=== PATIENT | female | born 1950 | race Caucasian/White ===

== ENCOUNTER → 2016-05-06 | Day surgery (SDC) | payer MEDICAID ==
[~2016-05-06] MED LIST: Lactated Ringers 1,000 ML IV SCH; Propofol 200 MG/20 ML SDV IV ONE
[2016-05-06 12:59] VITALS: BP 126/66
--- NOTE | 2016-05-09 07:54 | OR ---
DATE OF OPERATION: 05/06/2016 PREOPERATIVE DIAGNOSIS: 1. GASTROESOPHAGEAL REFLUX DISEASE. 2. ALTERED BOWEL HABITS. POSTOPERATIVE DIAGNOSIS: 1. GASTROESOPHAGEAL REFLUX DISEASE. 2. ALTERED BOWEL HABITS. SURGEON: Lamont Mackey MD PROCEDURE: 1. EGD WITH BIOPSIES X3, CODY. 2. FULL-LENGTH COLONOSCOPY. 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 COMPLICATIONS: None. SPECIMEN: 1. Antral biopsy x2. 2. CODY. 3. Distal esophageal biopsy x1. FINDINGS: 1. Full-length EGD. 2. Status post apparent hiatal hernia repair, intact. 3. 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 4. Minimal antral gastritis. 5. Full-length colonoscopy. 6. Extremely poor bowel prep. 7. Sigmoid diverticulosis. RECOMMENDATIONS: Medical followup with Dr. Ma. INDICATIONS: The patient was in for a physical. Apparently, she has been having some ongoing issues with altered bowel habits and chronic reflux. Dr. Ma recommended upper and lower endoscopy. DESCRIPTION OF PROCEDURE: The patient was prepped and draped, placed in the left lateral decubitus position. A lubricated Olympus gastroscope was then inserted into the cricopharyngeus area, and easily intubated the esophagus. The esophageal lining was benign in its entire course until its most distal aspect. The patient looks like she is status post a hiatal hernia repair, which is intact. She has a few very minor, possible short segment Branch's changes, and biopsies were taken of that. No acute inflammatory changes. No stricturing or ulcerations seen. No active reflux was seen with the scope in place. The scope was easily intubated into the stomach, through the pylorus, and into the duodenum. The duodenal bulb and the second portion of duodenum were completely benign. The scope was brought back into the stomach and retroflexed. The upper fundus and cardia were completely unremarkable. Hiatal hernia wrap looks in place. Upon straightening, the rest of the gastric lining was evaluated thoroughly. There may be some very mild antral changes of gastritis and two biopsies were taken along with a CODY test. Air was then suctioned from the stomach, and the scope was removed without complication. A lubricated Olympus colonoscope was then inserted and with relative ease, advanced to the cecum. Unfortunately, the patient's bowel prep was quite poor with liquid stool throughout most of the colon. A lot of this had particulate matter, and the scope repeatedly got plugged. There were many areas we were not able to visualize thoroughly. We were able to see the appendiceal orifice and visualize and palpate the right lower quadrant. Upon withdrawal, throughout the entire length of the colon, I could find no obvious polyps, masses, ulcerations, or bleeding sites. There were no definite vascular abnormalities or signs of colitis. The patient did have a few scattered diverticula in the sigmoid area but very minimal. No inflammatory changes. The rectal vault was benign. Retroflexion showed no anal lesions but visualization was very difficult due to the amount of stool present. Air was suctioned as best as possible. The scope was removed without complications. MARCELLA/FRANCESCO /[id number]
== END ==
LOC: CC.SDS 10:38
PROVIDERS: ATTEND Family Medicine
DX: K57.30 Diverticulosis of large intestine without perforation or abscess without bleeding (principal); K21.9 Gastro-esophageal reflux disease without esophagitis; M19.90 Unspecified osteoarthritis, unspecified site; F32.9 Major depressive disorder, single episode, unspecified; I10 Essential (primary) hypertension; E55.9 Vitamin D deficiency, unspecified; M81.0 Age-related osteoporosis without current pathological fracture; E78.5 Hyperlipidemia, unspecified; E04.1 Nontoxic single thyroid nodule; M81.8 Other osteoporosis without current pathological fracture; Z88.0 Allergy status to penicillin; Z88.5 Allergy status to narcotic agent; Z88.8 Allergy status to other drugs, medicaments and biological substances; Z79.899 Other long term (current) drug therapy; Z90.49 Acquired absence of other specified parts of digestive tract; Z98.890 Other specified postprocedural states
CPT/HCPCS: 43239; 45378; 87081; J2704; J7120

== ENCOUNTER 2017-12-04 16:40 | Inpatient (IN) | payer MEDICAID, MEDICARE ==
[2017-12-04 17:08] LABS: CHLORIDE,CL 102 mEq/L (98-106); SODIUM,NA 141 mEq/L (136-145)
[2017-12-04] MEDS ORDERED: Acetaminophen 325 MG Tab PO PRN (17:32)
[2017-12-04] MEDS ORDERED: Ondansetron 4 MG/2 ML SDV IV PRN (17:32)
[2017-12-04] MEDS ORDERED: Ondansetron 4 MG Tab.DIS PO PRN (17:32)
[2017-12-04] MEDS: Sodium Chloride 0.9% 1,000 ML IV SCH (18:30)
[2017-12-04] MEDS: Levofloxacin/Dextrose 5%-Water 500 MG in Premix Bag 1 BAG IV SCH (18:30)
[2017-12-04] MEDS: Enoxaparin 40 MG/0.4 ML Syringe SUBCUT SCH (19:03)
[2017-12-05] MEDS: Sodium Chloride 0.9% 1,000 ML IV SCH ×2 (04:22→14:06)
[2017-12-05 07:53] LABS: CHLORIDE,CL 108 mEq/L (98-106); SODIUM,NA 144 mEq/L (136-145)
--- NOTE | 2017-12-05 12:32 | PCM.PN ---
- General Info Date of Service: 12/05/17 Admission Dx/Problem (Free Text): Acute UTI with fever Functional Status: Reports: Pain Controlled, Tolerating Diet, Ambulating - Review of Systems General: Reports: Fever, Weakness, Fatigue HEENT: Reports: No Symptoms Pulmonary: Denies: Shortness of Breath, Cough Cardiovascular: Denies: Chest Pain, Edema, Lightheadedness Gastrointestinal: Reports: Abdominal Pain (with voiding), Nausea. Denies: Vomiting Genitourinary: Reports: Burning Musculoskeletal: Reports: No Symptoms Skin: Reports: No Symptoms Neurological: Reports: No Symptoms - Patient Data Vitals - Most Recent: Last Vital Signs Temp 98.6 F 12/05/17 08:00 Pulse 75 12/05/17 08:00 Resp 18 12/05/17 08:00 BP 110/61 12/05/17 08:00 Pulse Ox 96 12/05/17 08:00 Weight - Most Recent: 153 lb I&O - Last 24 Hours: Intake & Output 12/04/17 12/05/17 12/05/17 22:59 06:59 14:59 Intake Total 1487 Output Total 300 100 Balance 1187 -100 Lab Results Last 24 Hours: Laboratory Results - last 24 hr 12/04/17 12/04/17 12/04/17 Range/Units 16:52 16:52 16:52 WBC 9.6 (5.0-10.0) 10^3/uL RBC 4.52 (4.00-5.50) 10^6/uL Hgb 14.8 (12.0-16.0) g/dL Hct 43.6 (37.0-47.0) % MCV 96.5 H (82.0-94.0) fL MCH 32.7 H (27.0-32.0) pg MCHC 33.9 (33.0-38.0) g/dL RDW Coeff of Eric 11.8 (11.0-15.0) % Plt Count 193 (150-400) 10^3/uL Neut % (Auto) 85.1 H (35-85) % Lymph % (Auto) 9.2 L (10-55) % [place] % (Auto) 5.1 (0-16) % Eos % (Auto) 0.4 (0-5) % Baso % (Auto) 0.2 (0-3) % Neut # (Auto) 8.20 H (1.80-7.00) 10^3/uL Lymph # (Auto) 0.89 L (1.00-4.80) 10^3/uL [place] # (Auto) 0.49 (0.00-0.80) 10^3/uL Eos # (Auto) 0.04 (0.00-0.45) 10^3/uL Baso # (Auto) 0.02 10^3/uL Sodium 141 (136-145) mEq/L Potassium 3.8 (3.5-5.0) mEq/L Chloride 102 (98-106) mEq/L Carbon Dioxide 27 (21-32) mmol/L BUN 5 L D (7-18) mg/dL Creatinine 0.8 (0.6-1.0) mg/dL Est Cr Clr Drug Dosing TNP Estimated GFR (MDRD) > 60 (>=60) mL/min Glucose 148 H D (75-99) mg/dL Calcium 8.9 (8.4-10.1) mg/dL Total Bilirubin 1.0 (0.0-1.0) mg/dL AST 16 (15-37) U/L ALT 18 (12-78) U/L Alkaline Phosphatase 83 (46-116) U/L C-Reactive Protein 4.1 H (0.2-0.8) mg/dL Total Protein 7.7 (6.4-8.2) g/dL Albumin 3.7 (3.4-5.0) g/dL Urine Color Yellow (YELLOW) Urine Appearance Cloudy (CLEAR) Urine pH 6.5 (4.5-8.0) Ur Specific [place] 1.015 (1.003-1.020) Urine Protein Negative (NEGATIVE) mg/dL Urine Glucose (UA) Negative (NEGATIVE) mg/dL Urine Ketones Negative (NEGATIVE) mg/dL Urine Occult Blood Moderate H (NEGATIVE) Urine Nitrite Positive H (NEGATIVE) Urine Bilirubin Negative (NEGATIVE) Urine Urobilinogen 0.2 (0.2-1.0) EU/dL Ur Leukocyte Esterase Moderate H (NEGATIVE) Urine RBC 0-5 (0-5) /HPF Urine WBC 50-75 H (0-5) /HPF Urine WBC Clumps Few H (NOT SEEN) /HPF Ur Epithelial Cells Few H (NOT SEEN) /HPF Urine Bacteria Many H (NOT SEEN) /HPF 12/05/17 12/05/17 Range/Units 07:00 07:00 WBC 7.4 (5.0-10.0) 10^3/uL RBC 3.83 L (4.00-5.50) 10^6/uL Hgb 12.6 (12.0-16.0) g/dL Hct 37.8 (37.0-47.0) % MCV 98.7 H (82.0-94.0) fL MCH 32.9 H (27.0-32.0) pg MCHC 33.3 (33.0-38.0) g/dL RDW Coeff of Eric 11.9 (11.0-15.0) % Plt Count 173 (150-400) 10^3/uL Neut % (Auto) 61.5 (35-85) % Lymph % (Auto) 25.4 (10-55) % [place] % (Auto) 11.2 (0-16) % Eos % (Auto) 1.6 (0-5) % Baso % (Auto) 0.3 (0-3) % Neut # (Auto) 4.56 (1.80-7.00) 10^3/uL Lymph # (Auto) 1.88 (1.00-4.80) 10^3/uL [place] # (Auto) 0.83 H (0.00-0.80) 10^3/uL Eos # (Auto) 0.12 (0.00-0.45) 10^3/uL Baso # (Auto) 0.02 10^3/uL Sodium 144 (136-145) mEq/L Potassium 3.2 L (3.5-5.0) mEq/L Chloride 108 H (98-106) mEq/L Carbon Dioxide 25 (21-32) mmol/L BUN 8 D (7-18) mg/dL Creatinine 0.7 (0.6-1.0) mg/dL Est Cr Clr Drug Dosing 66.28 Estimated GFR (MDRD) > 60 (>=60) mL/min Glucose 102 H D (75-99) mg/dL Calcium 8.1 L (8.4-10.1) mg/dL Total Bilirubin (0.0-1.0) mg/dL AST (15-37) U/L ALT (12-78) U/L Alkaline Phosphatase (46-116) U/L C-Reactive Protein 6.9 H (0.2-0.8) mg/dL Total Protein (6.4-8.2) g/dL Albumin (3.4-5.0) g/dL Urine Color (YELLOW) Urine Appearance (CLEAR) Urine pH (4.5-8.0) Ur Specific [place] (1.003-1.020) Urine Protein (NEGATIVE) mg/dL Urine Glucose (UA) (NEGATIVE) mg/dL Urine Ketones (NEGATIVE) mg/dL Urine Occult Blood (NEGATIVE) Urine Nitrite (NEGATIVE) Urine Bilirubin (NEGATIVE) Urine Urobilinogen (0.2-1.0) EU/dL Ur Leukocyte Esterase (NEGATIVE) Urine RBC (0-5) /HPF Urine WBC (0-5) /HPF Urine WBC Clumps (NOT SEEN) /HPF Ur Epithelial Cells (NOT SEEN) /HPF Urine Bacteria (NOT SEEN) /HPF [place] Results Last 24 Hours: Microbiology 12/04/17 16:55 Urine Culture - Preliminary Urine, Voided Gram Negative Rods Med Orders - Current: Current Medications Acetaminophen (Tylenol) 650 mg PO Q4H PRN PRN Reason: Pain (Mild 1-3)/fever Last Admin: 12/04/17 18:47 Dose: 650 mg Enoxaparin Sodium (Lovenox) 40 mg SUBCUT Q24H [facility] Last Admin: 12/04/17 19:03 Dose: 40 mg Levofloxacin/Dextrose 500 mg/ (Premix) 100 mls @ 100 mls/hr IV Q24H [facility] Last Admin: 12/04/17 18:30 Dose: 100 mls/hr Sodium Chloride (Normal Saline) 1,000 mls @ 100 mls/hr IV ASDIRECTED [facility] Last Admin: 12/05/17 04:22 Dose: 100 mls/hr Ondansetron HCl (Zofran Odt) 4 mg PO Q4H PRN PRN Reason: nausea, able to take PO Last Admin: 12/04/17 20:36 Dose: 4 mg Ondansetron HCl (Zofran) 4 mg IV Q4H PRN PRN Reason: Nausea/Vomiting - Exam General: Alert, Oriented HEENT: Mucous Membr. Moist/[place] Neck: Supple Lungs: Clear to Auscultation, Normal Respiratory Effort Cardiovascular: Regular Rate, Regular Rhythm GI/Abdominal Exam: Normal Bowel Sounds, Soft, Tender (suprapubic area) Extremities: Normal Inspection, No Pedal Edema Skin: Warm, Dry Neurological: No New Focal Deficit - Problem List & Annotations (1) Fever SNOMED Code(s): 840073532 Code(s): R50.9 - FEVER, UNSPECIFIED Status: Resolved Priority: High Current Visit: Yes Qualifiers: Encounter type: initial encounter Annotation/Comment:: Resolved (2) UTI, Urinary tract infectious disease SNOMED Code(s): 84477010 Code(s): N39.0 - URINARY TRACT INFECTION, SITE NOT SPECIFIED Status: Acute Priority: High Current Visit: Yes - Problem List Review Problem List Initiated/Reviewed/Updated: Yes - Assessment Assessment:: UTI with fever - Plan Plan:: Patient states is feeling better today. Is nauseated at times but improved. She states is hard to eat as she has discomfort to the roof of her mouth that she questions if related to the fever. Has abdominal discomfort/cramping with voiding, also experiencing low back discomfort. Did spike fever again last evening at 100.8. Labs today continue to show normal WBC at 7.4. CRP 6.9. Potassium decreased today to 3.2. Will continue with IV fluids and Levaquin. Awaiting blood culture and urine culture report. Encourage ambulation. Start oral potassium. Reevaluate in am with possible discharge.
[2017-12-05] MEDS: Potassium Chloride 10 MEQ Tab.ER PO SCH (14:05)
[2017-12-05] MEDS ORDERED: Non-Formulary Medication 1 Each (Alendronate Sodium [Fosamax] 70 MG) PO SCH (16:30)
[2017-12-05] MEDS ORDERED: Cyclobenzaprine 10 MG Tab PO PRN (16:30)
[2017-12-05] MEDS: Enoxaparin 40 MG/0.4 ML Syringe SUBCUT SCH (17:42)
[2017-12-05] MEDS: Levofloxacin/Dextrose 5%-Water 500 MG in Premix Bag 1 BAG IV SCH (17:42)
[2017-12-05] MEDS ORDERED: Doxepin 25 MG Cap PO SCH (20:00)
[2017-12-05] MEDS ORDERED: Citalopram 10 MG Tab PO SCH (20:00)
[2017-12-06] MEDS: Sodium Chloride 0.9% 1,000 ML IV SCH (01:44)
[2017-12-06] MEDS ORDERED: Pantoprazole 40 MG Tab.CR PO SCH (07:00)
[2017-12-06 07:26] LABS: CHLORIDE,CL 108 mEq/L (98-106); SODIUM,NA 144 mEq/L (136-145)
[2017-12-06] MEDS: Potassium Chloride 10 MEQ Tab.ER PO SCH (07:39)
[2017-12-06] MEDS ORDERED: Multivitamin Tab PO SCH (08:00)
[2017-12-06] MEDS ORDERED: Cholecalciferol (Vitamin D3) 1,000 Unit Tab PO SCH (08:00)
[2017-12-06 12:45] VITALS: BP 134/84
[2017-12-06] MEDS: Levofloxacin/Dextrose 5%-Water 500 MG in Premix Bag 1 BAG IV SCH (12:45)
--- NOTE | 2017-12-06 21:13 | PCM.DCSUM1 ---
Discharge Summary - Hospital Course Free Text/Narrative:: Patient presented to ER with complaints of fever, weakness, nausea and body aches. Had been having issues with fever increasing. Had temp of 102. Dry heaves in the clinic. UA positive for UTI. WBC normal at 9.6, CRP 4.1. Admitted and started on IV fluids, IV levaquin and fever control. Modified [place] Scale: No Symptoms at All Modified [place] Scale Score: 0 - Discharge Data Discharge Date: 12/06/17 Discharge Disposition: Home, Self-Care 01 Condition: Good - Discharge Diagnosis/Problem(s) (1) Fever SNOMED Code(s): 169364046 ICD Code: R50.9 - FEVER, UNSPECIFIED Status: Resolved Priority: High Problem Details: Resolved Qualifiers: Encounter type: initial encounter (2) UTI, Urinary tract infectious disease SNOMED Code(s): 26093620 ICD Code: N39.0 - URINARY TRACT INFECTION, SITE NOT SPECIFIED Status: Acute Priority: High - Patient Summary/Data Complications: none Hospital Course: Patient has had good improvement during stay. AFebrile now. Is tolerating meals without further nausea or vomiting. Does have "fever sores" in roof of mouth. Labs have remained stable, WBC 5.9. CRP did peak at 6.9, today 4.7. Potassium was low at 3.2. Potassium oral started. Blood cultures negative. Urine culture did show e coli, responsive to Levaquin. UP and ambulatory and tolerating well. - Patient Instructions Diet: Usual Diet as Tolerated Activity: As Tolerated - Discharge Plan *PRESCRIPTION DRUG MONITORING PROGRAM REVIEWED*: No *COPY OF PRESCRIPTION DRUG MONITORING REPORT IN PATIENT VERONIKA: No Prescriptions/Med Rec: Levofloxacin [Levaquin] 500 mg PO DAILY #7 tablet Potassium Chloride [Klor-Con 10] 20 meq PO DAILY #30 tab.er Home Medications: Home Meds Citalopram [Celexa] 30 mg PO BEDTIME 11/29/15 [History] Cyclobenzaprine [Flexeril] 10 mg PO BEDTIME PRN 11/29/15 [History] Doxepin HCl 150 mg PO BEDTIME 11/29/15 [History] Polyethylene Glycol 3350 [MiraLAX] 17 gm PO DAILY 11/29/15 [History] Alendronate Sodium [Fosamax] 70 mg PO Q7D 05/04/16 [History] Cholecalciferol (Vitamin D3) [Vitamin D3] 5,000 unit PO DAILY 05/04/16 [History] Omeprazole 40 mg PO DAILY 05/04/16 [History] Ibuprofen 200 mg PO Q4H PRN 12/04/17 [History] Multivitamin [Multiple Vitamins] 1 tab PO DAILY 12/04/17 [History] Levofloxacin [Levaquin] 500 mg PO DAILY #7 tablet 12/06/17 [Rx] Potassium Chloride [Klor-Con 10] 20 meq PO DAILY #30 tab.er 12/06/17 [Rx] Patient Handouts: Urosepsis Referrals: Nereyda Logan PA-C [Primary Care Provider] - (Follow up with Nereyda Logan in 10 days, labs prior to visit) - Discharge Summary/Plan Comment DC Time >30 min.: No Discharge Summary/Plan Comment: Discharge home Continue Levaquin 500 mg daily Potassium 20 meq daily Follow up with Nereyda Logan in 10 days, repeat labs at that time. - General Info Date of Service: 12/06/17 Admission Dx/Problem (Free Text: Acute UTI with fever Functional Status: Reports: Pain Controlled, Tolerating Diet, Ambulating - Review of Systems General: Reports: Weakness, Fatigue. Denies: Fever HEENT: Reports: No Symptoms Pulmonary: Denies: Shortness of Breath, Cough Cardiovascular: Denies: Chest Pain, Edema, Lightheadedness Gastrointestinal: Denies: Abdominal Pain, Nausea, Vomiting Genitourinary: Reports: Frequency Musculoskeletal: Reports: No Symptoms Skin: Reports: No Symptoms Neurological: Reports: No Symptoms - Patient Data Vitals - Most Recent: Last Vital Signs Temp 98.2 F 12/06/17 12:00 Pulse 84 12/06/17 12:00 Resp 18 12/06/17 12:00 BP 134/84 12/06/17 12:00 Pulse Ox 95 12/06/17 12:00 Weight - Most Recent: 154 lb 8 oz I&O - Last 24 hours: Intake & Output 12/06/17 12/06/17 12/06/17 06:59 14:59 22:59 Intake Total 1300 Output Total 2300 Balance -1000 Lab Results - Last 24 hrs: Laboratory Results - last 24 hr 12/06/17 12/06/17 Range/Units 07:05 07:05 WBC 5.9 (5.0-10.0) 10^3/uL RBC 3.72 L (4.00-5.50) 10^6/uL Hgb 12.2 (12.0-16.0) g/dL Hct 37.1 (37.0-47.0) % MCV 99.7 H (82.0-94.0) fL MCH 32.8 H (27.0-32.0) pg MCHC 32.9 L (33.0-38.0) g/dL RDW Coeff of Eric 11.9 (11.0-15.0) % Plt Count 196 (150-400) 10^3/uL Neut % (Auto) 53.2 (35-85) % Lymph % (Auto) 33.5 (10-55) % [place] % (Auto) 10.1 (0-16) % Eos % (Auto) 2.9 (0-5) % Baso % (Auto) 0.3 (0-3) % Neut # (Auto) 3.11 (1.80-7.00) 10^3/uL Lymph # (Auto) 1.96 (1.00-4.80) 10^3/uL [place] # (Auto) 0.59 (0.00-0.80) 10^3/uL Eos # (Auto) 0.17 (0.00-0.45) 10^3/uL Baso # (Auto) 0.02 10^3/uL Sodium 144 (136-145) mEq/L Potassium 4.1 D (3.5-5.0) mEq/L Chloride 108 H (98-106) mEq/L Carbon Dioxide 29 (21-32) mmol/L BUN 9 (7-18) mg/dL Creatinine 0.7 (0.6-1.0) mg/dL Est Cr Clr Drug Dosing 66.28 mL/min Estimated GFR (MDRD) > 60 (>=60) mL/min Glucose 102 H (75-99) mg/dL Calcium 8.1 L (8.4-10.1) mg/dL C-Reactive Protein 4.7 H (0.2-0.8) mg/dL LIUDMILA Results - Last 24 hrs: Microbiology 12/04/17 17:52 Aerobic Blood Culture - Preliminary Blood - Venous - Lab Draw NO GROWTH AFTER 2 DAYS Anaerobic Blood Culture - Preliminary NO GROWTH AFTER 2 DAYS 12/04/17 17:46 Aerobic Blood Culture - Preliminary Blood - Venous NO GROWTH AFTER 2 DAYS Anaerobic Blood Culture - Preliminary NO GROWTH AFTER 2 DAYS 12/04/17 16:55 Urine Culture - Final Urine, Voided Escherichia Coli Med Orders - Current: Current Medications Discontinued Medications Acetaminophen (Tylenol) 650 mg PO Q4H PRN PRN Reason: Pain (Mild 1-3)/fever Last Admin: 12/04/17 18:47 Dose: 650 mg Cholecalciferol (Vitamin D3) 5,000 units PO DAILY [facility] Last Admin: 12/06/17 07:39 Dose: 5,000 units Citalopram Hydrobromide (Celexa) 30 mg PO BEDTIME [facility] Last Admin: 12/05/17 19:47 Dose: 30 mg Cyclobenzaprine HCl (Flexeril) 10 mg PO BEDTIME PRN PRN Reason: Pain Doxepin HCl (Sinequan) 150 mg PO BEDTIME [facility] Last Admin: 12/05/17 19:48 Dose: 150 mg Enoxaparin Sodium (Lovenox) 40 mg SUBCUT Q24H [facility] Last Admin: 12/05/17 17:42 Dose: 40 mg Levofloxacin/Dextrose 500 mg/ (Premix) 100 mls @ 100 mls/hr IV Q24H [facility] Last Admin: 12/06/17 12:45 Dose: 100 mls/hr Sodium Chloride (Normal Saline) 1,000 mls @ 100 mls/hr IV ASDIRECTED [facility] Last Admin: 12/06/17 01:44 Dose: 100 mls/hr Multivitamins/Minerals/Vitamin C (Tab-A-[place]) 1 tab PO DAILY [facility] Last Admin: 12/06/17 07:39 Dose: 1 tab Non-Formulary Medication (Alendronate Sodium [Fosamax]) 70 mg PO Q7D [facility] Last Admin: 12/05/17 17:44 Dose: Not Given Ondansetron HCl (Zofran Odt) 4 mg PO Q4H PRN PRN Reason: nausea, able to take PO Last Admin: 12/04/17 20:36 Dose: 4 mg Ondansetron HCl (Zofran) 4 mg IV Q4H PRN PRN Reason: Nausea/Vomiting Pantoprazole Sodium (Protonix) 40 mg PO ACBRK [facility] Last Admin: 12/06/17 06:22 Dose: 40 mg Potassium Chloride (Klor-Con 10) 20 meq PO DAILY [facility] Last Admin: 12/06/17 07:39 Dose: 20 meq - Exam General: Reports: Alert, Oriented HEENT: Reports: Mucous Membr. Moist/[place] Neck: Reports: Supple Lungs: Reports: Clear to Auscultation, Normal Respiratory Effort Cardiovascular: Reports: Regular Rate, Regular Rhythm GI/Abdominal Exam: Normal Bowel Sounds, Soft, Non-Tender Extremities: Normal Inspection, No Pedal Edema Skin: Reports: Warm, Dry Neurological: Reports: No New Focal Deficit
== END 2017-12-06 14:45 | disposition home or self-care (01) | DRG 690 ==
LOC: CC.MS 16:40 → CC.FCMC 16:40 → CC.MS 17:26 → UNDOADMIN 17:26 → CC.MS 17:32
PROVIDERS: ADMIT Physician Assistant Medical; ATTEND Family Medicine
DX: A41.9 Sepsis, unspecified organism (principal); N39.0 Urinary tract infection, site not specified; B96.20 Unspecified Escherichia coli [E. coli] as the cause of diseases classified elsewhere; F32.9 Major depressive disorder, single episode, unspecified; I10 Essential (primary) hypertension; Z88.0 Allergy status to penicillin; Z88.6 Allergy status to analgesic agent; Z91.012 Allergy to eggs; R53.1 Weakness; R11.10 Vomiting, unspecified; Z79.899 Other long term (current) drug therapy
CPT/HCPCS: 36415; 71046; 80048; 80053; 81001; 85025; 86140; 87040; 87086; 87088; 87186; A9270-GY; J1650; J1956; J7030

== ENCOUNTER 2017-12-13 04:05 | Emergency (ER) | payer MEDICARE, MEDICAID ==
[2017-12-13 04:17] VITALS: BP 130/74
[2017-12-13 04:38] LABS: CHLORIDE,CL 104 mEq/L (98-106); SODIUM,NA 139 mEq/L (136-145)
--- NOTE | 2017-12-13 05:00 | EDM.PDOC ---
ED HPI GENERAL MEDICAL PROBLEM - General Chief Complaint: General Stated Complaint: s/p fall Time Seen by Provider: 12/13/17 04:37 Source of Information: Reports: Patient History Limitations: Reports: No Limitations - History of Present Illness INITIAL COMMENTS - FREE TEXT/NARRATIVE: Bravo is a 67 year old female who presents to the ED with c/o right sided rib pain. She reports she got up to use the bathroom at midnight and tripped and fell, landing on her side table. She reports she was able to get up on her own and ambulate. She reports throughout the night her pain has not gone away so she "figured she better make sure something isn't wrong." She denies any shortness of breath, abdominal pain, N/V/D. Denies any concerns other than tenderness and bruising to her right side of ribs. SHe reports she called EMS to bring her here because her son wouldn't wake up. Upon ED presentation, patient is alert and oriented. She appears in no acute distress. She is ambulating without difficulty. Onset: Today Onset Date: 12/13/17 Onset Time: 00:00 Duration: Constant Location: Reports: Chest (ribs) Quality: Reports: Ache, Sharp Severity: Moderate Worsens with: Reports: None Context: Reports: Activity Associated Symptoms: Reports: No Other Symptoms. 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 Right Chest Pain Score (Numeric/FACES): 8 - Related Data Allergies Allergy/AdvReac Type Severity Reaction Status Date / Time codeine Allergy Itching Verified 12/13/17 04:09 corn Allergy Cannot Verified 12/13/17 04:09 Remember egg Allergy Stomach Verified 12/13/17 04:09 Upset Penicillins Allergy Cannot Verified 12/13/17 04:09 Remember strawberry Allergy Cannot Verified 12/13/17 04:09 Remember Home Meds: Home Meds Citalopram [Celexa] 30 mg PO BEDTIME 11/29/15 [History] Cyclobenzaprine [Flexeril] 10 mg PO BEDTIME PRN 11/29/15 [History] Doxepin HCl 150 mg PO BEDTIME 11/29/15 [History] Polyethylene Glycol 3350 [MiraLAX] 17 gm PO DAILY 11/29/15 [History] Alendronate Sodium [Fosamax] 70 mg PO Q7D 05/04/16 [History] Cholecalciferol (Vitamin D3) [Vitamin D3] 5,000 unit PO DAILY 05/04/16 [History] Omeprazole 40 mg PO DAILY 05/04/16 [History] Ibuprofen 200 mg PO Q4H PRN 12/04/17 [History] Multivitamin [Multiple Vitamins] 1 tab PO DAILY 12/04/17 [History] Levofloxacin [Levaquin] 500 mg PO DAILY #7 tablet 12/06/17 [Rx] Potassium Chloride [Klor-Con 10] 20 meq PO DAILY #30 tab.er 12/06/17 [Rx] Past Medical History HEENT History: Reports: Allergic Rhinitis Cardiovascular History: Reports: Hypertension Gastrointestinal History: Reports: Chronic Constipation, GERD, Hepatitis, Other (See Below) Other Gastrointestinal History: hep B 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: Musculoskeletal History: Reports: Other (See Below) Other Musculoskeletal History: muscle spasms Psychiatric History: Reports: Depression - Infectious Disease History Infectious Disease History: Reports: Hepatitis B - Past Surgical History GI Surgical History: Reports: Cholecystectomy, Other (See Below) Musculoskeletal Surgical History: Reports: Other (See Below) Other Musculoskeletal Surgeries/Procedures:: foot surgery Social & Family History - Family History Family Medical History: Noncontributory - Tobacco Use Smoking Status *Q: Never Smoker - Caffeine Use Caffeine Use: Reports: None - Recreational Drug Use Recreational Drug Use: No ED ROS GENERAL - Review of Systems Review Of Systems: ROS reveals no pertinent complaints other than HPI. ED EXAM, GENERAL - Physical Exam Exam: See Below Exam Limited By: No Limitations General Appearance: Alert, WD/WN, No Apparent Distress Eye Exam: Bilateral Eye: EOMI, PERRL Head: Atraumatic, Normocephalic Neck: Normal Inspection, Supple, Non-Tender, Full Range of Motion Respiratory/Chest: No Respiratory Distress, Lungs Clear, Normal Breath Sounds, No Accessory Muscle Use, Other (tenderness to right side chest, bruise) Cardiovascular: Normal Peripheral Pulses, Regular Rate, Rhythm, No Edema, No Gallop, No JVD, No Murmur, No Rub Neurological: Alert, Oriented, CN II-XII Intact, Normal Cognition, Normal Gait, Normal Reflexes, No Motor/Sensory Deficits Psychiatric: Normal Affect, Normal Mood Skin Exam: Warm, Dry, Intact, Normal Color, No Rash, Ecchymosis (right mid chest ) Course - Vital Signs Last Recorded V/S: Last Vital Signs Temp 96.8 F 12/13/17 04:13 Pulse 87 12/13/17 04:13 Resp 18 12/13/17 04:13 BP 130/74 12/13/17 04:13 Pulse Ox 96 12/13/17 04:13 - Orders/Labs/Meds Orders: Active Orders 24 hr Category Date Time Status Ribs 2V w Chest Rt [CR] Stat Exams 12/13/17 04:05 Taken Labs: Laboratory Tests 12/13/17 12/13/17 12/13/17 Range/Units 04:20 04:20 04:23 WBC 7.8 (5.0-10.0) 10^3/uL RBC 4.03 (4.00-5.50) 10^6/uL Hgb 13.3 (12.0-16.0) g/dL Hct 39.4 (37.0-47.0) % MCV 97.8 H (82.0-94.0) fL MCH 33.0 H (27.0-32.0) pg MCHC 33.8 (33.0-38.0) g/dL RDW Coeff of Eric 12.0 (11.0-15.0) % Plt Count 247 (150-400) 10^3/uL Neut % (Auto) 56.1 (35-85) % Lymph % (Auto) 33.5 (10-55) % [place] % (Auto) 7.8 (0-16) % Eos % (Auto) 2.3 (0-5) % Baso % (Auto) 0.3 (0-3) % Neut # (Auto) 4.40 (1.80-7.00) 10^3/uL Lymph # (Auto) 2.62 (1.00-4.80) 10^3/uL [place] # (Auto) 0.61 (0.00-0.80) 10^3/uL Eos # (Auto) 0.18 (0.00-0.45) 10^3/uL Baso # (Auto) 0.02 10^3/uL Sodium 139 (136-145) mEq/L Potassium 3.7 (3.5-5.0) mEq/L Chloride 104 (98-106) mEq/L Carbon Dioxide 27 (21-32) mmol/L BUN 11 (7-18) mg/dL Creatinine 1.0 (0.6-1.0) mg/dL Est Cr Clr Drug Dosing 46.40 mL/min Estimated GFR (MDRD) 56 L (>=60) mL/min Glucose 99 (75-99) mg/dL Calcium 8.4 (8.4-10.1) mg/dL Total Bilirubin 0.3 (0.0-1.0) mg/dL AST 14 L (15-37) U/L ALT 18 (12-78) U/L Alkaline Phosphatase 61 (46-116) U/L Lactate Dehydrogenase 128 (100-190) U/L Creatine Kinase 27 (21-215) U/L Troponin I < 0.017 (0.00-0.06) ng/mL C-Reactive Protein < 0.2 L (0.2-0.8) mg/dL Total Protein 6.7 (6.4-8.2) g/dL Albumin 3.4 (3.4-5.0) g/dL Urine Color Yellow (YELLOW) Urine Appearance Clear (CLEAR) Urine pH 5.5 (4.5-8.0) Ur Specific [place] 1.010 (1.003-1.020) Urine Protein Negative (NEGATIVE) mg/dL Urine Glucose (UA) Negative (NEGATIVE) mg/dL Urine Ketones Negative (NEGATIVE) mg/dL Urine Occult Blood Trace-intact H (NEGATIVE) Urine Nitrite Negative (NEGATIVE) Urine Bilirubin Negative (NEGATIVE) Urine Urobilinogen 0.2 (0.2-1.0) EU/dL Ur Leukocyte Esterase Negative (NEGATIVE) Urine RBC 0-5 (0-5) /HPF Urine WBC 0-5 (0-5) /HPF Ur Epithelial Cells Few H (NOT SEEN) /HPF - Re-Assessments/Exams Free Text/Narrative Re-Assessment/Exam: Xray negative for acute fracture or changes. Discussed with patient. Departure - Departure Time of Disposition: 04:57 Disposition: Home, Self-Care 01 Condition: Good Clinical Impression: Fall at home Qualifiers: Encounter type: initial encounter Qualified Code(s): W19.XXXA - Unspecified fall, initial encounter Contusion of rib on right side Qualifiers: Encounter type: initial encounter Qualified Code(s): S20.211A - Contusion of right front wall of thorax, initial encounter - Discharge Information *PRESCRIPTION DRUG MONITORING PROGRAM REVIEWED*: Not Applicable *COPY OF PRESCRIPTION DRUG MONITORING REPORT IN PATIENT VERONIKA: Not Applicable Instructions: Rib Contusion Referrals: Nereyda Logan PA-C [Primary Care Provider] - Forms: ED Department Discharge Additional Instructions: Alternate Tylenol and ibuprofen as needed for pain Ice/heat to affected area as needed for comfort Activity as tolerated Follow up in clinic if symptoms worsen or do not improve - My Orders Last 24 Hours: My Active Orders 12/13/17 04:05 Ribs 2V w Chest Rt [CR] Stat - Assessment/Plan Last 24 Hours: My Active Orders 12/13/17 04:05 Ribs 2V w Chest Rt [CR] Stat
== END 2017-12-13 05:05 | disposition home or self-care (01) ==
LOC: CC.ED 04:05
DX: S20.211A Contusion of right front wall of thorax, initial encounter (principal); I10 Essential (primary) hypertension; K21.9 Gastro-esophageal reflux disease without esophagitis; Z88.5 Allergy status to narcotic agent; Z88.8 Allergy status to other drugs, medicaments and biological substances; Z91.012 Allergy to eggs; Z79.899 Other long term (current) drug therapy; Y92.009 Unspecified place in unspecified non-institutional (private) residence as the place of occurrence of the external cause; W01.190A Fall on same level from slipping, tripping and stumbling with subsequent striking against furniture, initial encounter
CPT/HCPCS: 36415; 71101-RT; 80053; 81001; 82550; 83615; 84484; 85025; 86140; 93005; 99283

== ENCOUNTER 2019-02-27 11:08 | Inpatient (IN) | payer MEDICARE, MEDICAID ==
[2019-02-27] MEDS ORDERED: Ondansetron 4 MG Tab.DIS PO PRN (11:40)
[2019-02-27] MEDS ORDERED: Temazepam 15 MG Cap PO PRN (11:40)
[2019-02-27] MEDS ORDERED: Acetaminophen 500 MG Tab PO PRN (11:47)
[2019-02-27] MEDS ORDERED: Non-Formulary Medication 1 Each (Alendronate Sodium [Fosamax] 70 MG) PO SCH (12:00)
[2019-02-27] MEDS: Cyclobenzaprine 10 MG Tab PO PRN (16:58)
--- NOTE | 2019-02-27 19:22 | PCM.HP.2 ---
H&P History of Present Illness - General Date of Service: 02/27/19 Admit Problem/Dx: Admission Diagnosis/Problem Admission Diagnosis/Problem Status post total knee replacement, left Source of Information: Patient, Old Records History Limitations: Reports: No Limitations - History of Present Illness Initial Comments - Free Text/Narative: Patient presented to [facility] for physical therapy as s/p left total knee replacement. She had surgery by Dr. Nolasco on Monday the . Continues to have increased pain, states having difficulty with full extension of knee. Did have BM prior to surgery. Denies abdominal pain but feels mildly bloated. No fevers. Duration of Symptoms: Reports: Day(s):, Constant Location: Reports: Lower Extremity, Left Quality: Reports: Ache, Sharp Severity: Moderate Improves with: Reports: Rest Worsens with: Reports: Movement Associated Symptoms: Denies: Confusion, Chest Pain, Cough, Fever/Chills, Loss of Appetite, Nausea/Vomiting, Shortness of Breath Left Knee Pain Score (Numeric/FACES): 8 - Related Data Allergies/Adverse Reactions: Allergies Allergy/AdvReac Type Severity Reaction Status Date / Time codeine Allergy Itching Verified 02/27/19 11:28 corn Allergy Cannot Verified 02/27/19 11:28 Remember egg Allergy Stomach Verified 02/27/19 11:28 Upset Penicillins Allergy Cannot Verified 02/27/19 11:28 Remember strawberry Allergy Cannot Verified 02/27/19 11:28 Remember Home Medications: Home Meds Citalopram [Celexa] 30 mg PO DAILY 11/29/15 [History] Cyclobenzaprine [Flexeril] 10 mg PO TID PRN 11/29/15 [History] Doxepin HCl 150 mg PO BEDTIME 11/29/15 [History] Polyethylene Glycol 3350 [MiraLAX] 17 gm PO DAILY 11/29/15 [History] Alendronate Sodium [Fosamax] 70 mg PO Q7D 05/04/16 [History] Omeprazole 40 mg PO DAILY 05/04/16 [History] Multivitamin [Multiple Vitamins] 1 tab PO DAILY 12/04/17 [History] Potassium Chloride [Klor-Con 10] 20 meq PO DAILY #30 tab.er 12/06/17 [Rx] Acetaminophen [Tylenol Extra Strength] 1,000 mg PO ASDIRECTED PRN 02/27/19 [ History] Aspirin 81 mg PO DAILY 02/27/19 [History] Cholecalciferol (Vitamin D3) [Vitamin D3] 1,000 unit PO DAILY 02/27/19 [History] Loratadine [Claritin] 10 mg PO DAILY 02/27/19 [History] Meloxicam [Mobic] 7.5 mg PO BID PRN 02/27/19 [History] Montelukast [Singulair] 10 mg PO DAILY 02/27/19 [History] Polyethylene Glycol 3350 [MiraLAX] 17 gm PO DAILY PRN 02/27/19 [History] Past Medical History HEENT History: Reports: Allergic Rhinitis Cardiovascular History: Reports: Hypertension Gastrointestinal History: Reports: Chronic Constipation, GERD, Hepatitis, Other (See Below) Other Gastrointestinal History: hep B 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: Musculoskeletal History: Reports: Other (See Below) Other Musculoskeletal History: muscle spasms Psychiatric History: Reports: Depression - Infectious Disease History Infectious Disease History: Reports: Hepatitis B - Past Surgical History HEENT Surgical History: Reports: Cataract Surgery GI Surgical History: Reports: Cholecystectomy Musculoskeletal Surgical History: Reports: Knee Replacement, Other (See Below) Other Musculoskeletal Surgeries/Procedures:: foot surgery, wrist surgery Social & Family History - Family History Family Medical History: Noncontributory - Tobacco Use Smoking Status *Q: Never Smoker - Caffeine Use Caffeine Use: Reports: Coffee, Soda - Recreational Drug Use Drug Use in Last 12 Months: No Recreational Drug Type: Reports: Cocaine Recreational Drug Use Frequency: Not Used In Over 6 Months H&P Review of Systems - Review of Systems: Review Of Systems: See Below General: Reports: Weakness, Fatigue. Denies: Fever, Chills, Malaise HEENT: Reports: No Symptoms Pulmonary: Denies: Shortness of Breath, Cough Cardiovascular: Denies: Chest Pain, Lightheadedness Gastrointestinal: Reports: Constipation. Denies: Abdominal Pain, Nausea, Vomiting Genitourinary: Reports: No Symptoms Musculoskeletal: Reports: Leg Pain, Joint Pain Skin: Reports: Other (incision) Neurological: Reports: Weakness Exam - Exam Exam: See Below - Vital Signs Weight: 152 lb 1.6 oz - Exam General: Alert, Oriented HEENT: Conjunctiva Clear, Mucosa Moist & [place], Posterior Pharynx Clear Neck: Supple Lungs: Clear to Auscultation, Normal Respiratory Effort Cardiovascular: Regular Rate, Regular Rhythm GI/Abdominal Exam: Normal Bowel Sounds, Soft, Non-Tender, Distended Extremities: Limited Range of Motion, Redness (patient does have redness noted to lateral left knee at the patellar region. Bandage is dry, intact. Edema 2+ in LLE. Does have limited range of motion with knee) Skin: Warm, Dry, Incision Neuro Extensive - Mental Status: Alert, Oriented x3 Sepsis Event Note - Evaluation Sepsis Screening Result: No Definite Risk - Problem List (1) Status post total left knee replacement SNOMED Code(s): 0505185234908, 5007967790840 ICD Code: Z96.652 - PRESENCE OF LEFT ARTIFICIAL KNEE JOINT Status: Acute Priority: High Current Visit: Yes Problem List Initiated/Reviewed/Updated: Yes Orders Last 24hrs: Active Orders 24 hr Category Date Time Status Patient Status [ADT] Routine ADT 02/27/19 11:40 Active Antiembolic Devices [RC] 1000,2200 Care 02/27/19 16:25 Active Oxygen Therapy [RC] .PRN Care 02/27/19 11:40 Active Up With Assistance [RC] .PRN Care 02/27/19 11:40 Active Vital Signs [RC] 0800,1999 Care 02/27/19 11:40 Active Wound Care [RC] 08 Care 02/27/19 11:40 Active PT Evaluation and Treatment [CONS] Routine Cons 02/27/19 11:40 Active Regular Diet [DIET] Diet 02/27/19 Lunch Active Acetaminophen [Tylenol Extra Strength] Med 02/27/19 14:20 Active 1,000 mg PO Q8H PRN Acetaminophen/oxyCODONE [Percocet 325-5 MG] Med 02/27/19 11:40 Active 1 - 2 tab PO Q4H PRN Aspirin Med 02/28/19 08:00 Active 81 mg PO DAILY Cholecalciferol (Vitamin D3) [Vitamin D3] Med 02/28/19 08:00 Active 25 mcg PO DAILY Citalopram [Celexa] Med 02/28/19 08:00 Active 30 mg PO DAILY Cyclobenzaprine [Flexeril] Med 02/27/19 11:47 Active 10 mg PO TID PRN Docusate Sodium [Colace] Med 02/27/19 20:00 Active 100 mg PO BID Doxepin [SINEquan] Med 02/27/19 20:00 Active 150 mg PO BEDTIME Loratadine [Claritin] Med 02/28/19 08:00 Active 10 mg PO DAILY Montelukast [Singulair] Med 02/28/19 08:00 Active 10 mg PO DAILY Multivitamins [Tab-A-Laurel] Med 02/28/19 08:00 Active 1 tab PO DAILY Ondansetron [Zofran ODT] Med 02/27/19 11:40 Active 4 mg PO Q4H PRN Pantoprazole [ProTONIX] Med 02/28/19 08:00 Active 40 mg PO DAILY Polyethylene Glycol 3350 [MiraLAX] Med 02/28/19 08:00 Active 17 gm PO DAILY Potassium Chloride [Klor-Con 10] Med 02/28/19 08:00 Active 20 meq PO DAILY Temazepam [Restoril] Med 02/27/19 11:40 Active 15 mg PO BEDTIME PRN MOE Hose [Antiembolic Hose] [OM.PC] Routine Oth 02/27/19 16:25 Ordered Resuscitation Status Routine Resus Stat 02/27/19 11:40 Ordered Medication Orders Acetaminophen (Tylenol Extra Strength) 1,000 mg PO Q8H PRN PRN Reason: Pain Aspirin (Aspirin) 81 mg PO DAILY [place] Cholecalciferol (Vitamin D3) 25 mcg PO DAILY [place] Citalopram Hydrobromide (Celexa) 30 mg PO DAILY [place] Cyclobenzaprine HCl (Flexeril) 10 mg PO TID PRN PRN Reason: Pain Last Admin: 02/27/19 16:58 Dose: 10 mg Docusate Sodium (Colace) 100 mg PO BID [place] Doxepin HCl (Sinequan) 150 mg PO BEDTIME [place] Loratadine (Claritin) 10 mg PO DAILY [place] Montelukast Sodium (Singulair) 10 mg PO DAILY [facility] Multivitamins/Minerals/Vitamin C (Tab-A-Laurel) 1 tab PO DAILY [place] Ondansetron HCl (Zofran Odt) 4 mg PO Q4H PRN PRN Reason: nausea, able to take PO Oxycodone/Acetaminophen (Percocet 325-5 Mg) 1 - 2 tab PO Q4H PRN PRN Reason: Pain (moderate 4-6) Pantoprazole Sodium (Protonix) 40 mg PO DAILY [place] Polyethylene Glycol (Miralax) 17 gm PO DAILY [place] Potassium Chloride (Klor-Con 10) 20 meq PO DAILY [place] Temazepam (Restoril) 15 mg PO BEDTIME PRN PRN Reason: Sleep Assessment/Plan Comment:: S/P Left Total Knee Replacement Will continue with Percocet for pain. Miralax and Colace for constipation. Physical therapy for strengthening/ambulation
[2019-02-27] MEDS: Doxepin 25 MG Cap PO SCH (19:44)
[2019-02-27] MEDS: Docusate Sodium 100 MG Cap PO SCH (19:45)
[2019-02-27] MEDS: Acetaminophen/oxyCODONE 325-5 MG Tab PO PRN (23:58)
[2019-02-28] MEDS ORDERED: Pantoprazole 40 MG Tab.CR PO SCH (08:00)
[2019-02-28] MEDS ORDERED: POTASSIUM CHLORIDE 10 MEQ PO SCH (08:00)
[2019-02-28] MEDS ORDERED: Citalopram 10 MG Tab PO SCH (08:00)
[2019-02-28] MEDS: Acetaminophen/oxyCODONE 325-5 MG Tab PO PRN (08:58)
[2019-02-28] MEDS: Polyethylene Glycol 3350 Powder 17 GM Packet PO SCH (08:59)
[2019-02-28] MEDS: Aspirin 81 MG Tab.Chew PO SCH (08:59)
[2019-02-28] MEDS: Docusate Sodium 100 MG Cap PO SCH ×2 (09:00→20:22)
[2019-02-28] MEDS: MONTELUKAST 10 MG PO SCH (09:00)
[2019-02-28] MEDS: Loratadine 10 MG Tab PO SCH (09:00)
[2019-02-28] MEDS: Cholecalciferol (Vitamin D3) 25 MCG Tab PO SCH (09:00)
[2019-02-28] MEDS: Multivitamin Tab PO SCH (09:00)
[2019-02-28] MEDS: ACETAMINOPHEN PO PRN (17:21)
[2019-02-28] MEDS: OXYCODONE PO PRN (17:21)
[2019-02-28] MEDS: Doxepin 25 MG Cap PO SCH (20:22)
[2019-03-01] MEDS: OXYCODONE PO PRN ×3 (01:08→14:37)
[2019-03-01] MEDS: ACETAMINOPHEN PO PRN ×3 (01:08→14:37)
[2019-03-01] MEDS ORDERED: CITALOPRAM 20 MG PO SCH (05:31)
[2019-03-01] MEDS: Loratadine 10 MG Tab PO SCH (07:41)
[2019-03-01] MEDS: Aspirin 81 MG Tab.Chew PO SCH (07:41)
[2019-03-01] MEDS: Docusate Sodium 100 MG Cap PO SCH ×2 (07:41→20:07)
[2019-03-01] MEDS: Multivitamin Tab PO SCH (07:42)
[2019-03-01] MEDS: Cholecalciferol (Vitamin D3) 25 MCG Tab PO SCH (07:42)
[2019-03-01] MEDS: MONTELUKAST 10 MG PO SCH (07:42)
[2019-03-01] MEDS: POTASSIUM CHLORIDE 20 MEQ PO SCH (07:42)
[2019-03-01] MEDS: Polyethylene Glycol 3350 Powder 17 GM Packet PO SCH (07:44)
[2019-03-01] MEDS ORDERED: diphenhydrAMINE 25 MG Cap PO PRN (17:11)
[2019-03-01] MEDS: DOXEPIN HCL 75 MG PO SCH (20:06)
[2019-03-01] MEDS: Acetaminophen/HYDROcodone 325-5 MG Tab PO PRN (20:15)
[2019-03-02] MEDS: Acetaminophen/HYDROcodone 325-5 MG Tab PO PRN ×3 (05:38→19:54)
[2019-03-02] MEDS: Cyclobenzaprine 10 MG Tab PO PRN (08:06)
[2019-03-02] MEDS: MONTELUKAST 10 MG PO SCH (08:07)
[2019-03-02] MEDS: POTASSIUM CHLORIDE 20 MEQ PO SCH (08:07)
[2019-03-02] MEDS: Multivitamin Tab PO SCH (08:15)
[2019-03-02] MEDS: Aspirin 81 MG Tab.Chew PO SCH (08:16)
[2019-03-02] MEDS: Polyethylene Glycol 3350 Powder 17 GM Packet PO SCH (08:16)
[2019-03-02] MEDS: Loratadine 10 MG Tab PO SCH (08:17)
[2019-03-02] MEDS: Cholecalciferol (Vitamin D3) 25 MCG Tab PO SCH (08:17)
[2019-03-02] MEDS: Docusate Sodium 100 MG Cap PO SCH ×2 (08:18→19:50)
[2019-03-02] MEDS: Acetaminophen 500 MG Tab PO PRN (11:44)
[2019-03-02] MEDS: DOXEPIN HCL 75 MG PO SCH (19:51)
[2019-03-02] MEDS ORDERED: CITALOPRAM 20 MG PO SCH (20:00)
[2019-03-02] MEDS: CITALOPRAM 20 MG PO SCH (20:36)
[2019-03-03] MEDS: Acetaminophen/HYDROcodone 325-5 MG Tab PO PRN ×4 (04:17→19:32)
[2019-03-03] MEDS: Polyethylene Glycol 3350 Powder 17 GM Packet PO SCH (07:53)
[2019-03-03] MEDS: Acetaminophen 500 MG Tab PO PRN ×2 (07:54→17:37)
[2019-03-03] MEDS: Docusate Sodium 100 MG Cap PO SCH ×2 (07:55→19:33)
[2019-03-03] MEDS: Loratadine 10 MG Tab PO SCH (07:55)
[2019-03-03] MEDS: Aspirin 81 MG Tab.Chew PO SCH (07:55)
[2019-03-03] MEDS: Cholecalciferol (Vitamin D3) 25 MCG Tab PO SCH (07:55)
[2019-03-03] MEDS: MONTELUKAST 10 MG PO SCH (07:56)
[2019-03-03] MEDS: Multivitamin Tab PO SCH (07:56)
[2019-03-03] MEDS: POTASSIUM CHLORIDE 20 MEQ PO SCH (07:56)
[2019-03-03] MEDS: Cyclobenzaprine 10 MG Tab PO PRN (17:39)
[2019-03-03] MEDS: DOXEPIN HCL 75 MG PO SCH (19:33)
[2019-03-03] MEDS: CITALOPRAM 20 MG PO SCH (19:33)
[2019-03-03] MEDS ORDERED: Acetaminophen/oxyCODONE 325-5 MG Tab PO PRN (19:44)
--- NOTE | 2019-03-03 19:44 | PCM.PN ---
- General Info Date of Service: 03/03/19 Admission Dx/Problem (Free Text): Admission Diagnosis/Problem Admission Diagnosis/Problem Status post total knee replacement, left Functional Status: Reports: Other (c/o pain left knee) - Review of Systems General: Denies: Fever Pulmonary: Reports: No Symptoms. Denies: Shortness of Breath Cardiovascular: Reports: No Symptoms. Denies: Chest Pain, Palpitations Gastrointestinal: Reports: No Symptoms. Denies: Abdominal Pain, Nausea, Vomiting Musculoskeletal: Reports: Joint Pain (left knee pain). Denies: Neck Pain, Back Pain Skin: Denies: Pallor, Bruising, Rash Neurological: Denies: Numbness, Tingling Psychiatric: Reports: No Symptoms - Patient Data Vitals - Most Recent: Last Vital Signs Temp 37.3 C 03/03/19 07:52 Pulse 86 03/03/19 07:52 Resp 16 03/03/19 07:52 BP 118/59 L 03/03/19 07:52 Pulse Ox 98 03/03/19 07:52 Weight - Most Recent: 68.991 kg Med Orders - Current: Current Medications Acetaminophen (Tylenol Extra Strength) 1,000 mg PO Q8H PRN PRN Reason: Pain Last Admin: 03/03/19 17:37 Dose: 1,000 mg Hydrocodone Bitart/Acetaminophen ([place] 325-5 Mg) 1 tab PO Q4H PRN PRN Reason: Pain Last Admin: 03/03/19 19:32 Dose: 1 tab Aspirin (Aspirin) 81 mg PO DAILY [facility] Last Admin: 03/03/19 07:55 Dose: 81 mg Cholecalciferol (Vitamin D3) 25 mcg PO DAILY [facility] Last Admin: 03/03/19 07:55 Dose: 25 mcg Cyclobenzaprine HCl (Flexeril) 10 mg PO TID PRN PRN Reason: Pain Last Admin: 03/03/19 17:39 Dose: 10 mg Diphenhydramine HCl (Benadryl) 25 mg PO BID PRN PRN Reason: Itching Last Admin: 03/01/19 18:34 Dose: 25 mg Docusate Sodium (Colace) 100 mg PO BID [facility] Last Admin: 03/03/19 19:33 Dose: 100 mg Loratadine (Claritin) 10 mg PO DAILY [facility] Last Admin: 03/03/19 07:55 Dose: 10 mg Montelukast Sodium (Singulair) 10 mg PO DAILY [facility] Last Admin: 03/03/19 07:56 Dose: 10 mg Multivitamins/Minerals/Vitamin C (Tab-A-Laurel) 1 tab PO DAILY [facility] Last Admin: 03/03/19 07:56 Dose: 1 tab Potassium Chloride (20meq Tab Ptom) 20 each PO DAILY [facility] Last Admin: 03/03/19 07:56 Dose: 20 each Doxepin Hcl 75mg (Caps Ptom) 2 each PO BEDTIME [facility] Last Admin: 03/03/19 19:33 Dose: 2 each Omeprazole 40mg (Ptom) 40 each PO ACBREAKFAST [facility] Last Admin: 03/03/19 06:44 Dose: 40 each Citalopram 20 Mg (Own Med) 1.5 each PO BEDTIME [facility] Last Admin: 03/03/19 19:33 Dose: 1.5 each Ondansetron HCl (Zofran Odt) 4 mg PO Q4H PRN PRN Reason: nausea, able to take PO Polyethylene Glycol (Miralax) 17 gm PO DAILY [facility] Last Admin: 03/03/19 07:53 Dose: 17 gm Temazepam (Restoril) 15 mg PO BEDTIME PRN PRN Reason: Sleep Discontinued Medications Acetaminophen (Tylenol Extra Strength) 1,000 mg PO ASDIRECTED PRN PRN Reason: Pain Citalopram Hydrobromide (Celexa) 30 mg PO DAILY [facility] Last Admin: 02/28/19 08:59 Dose: 30 mg Doxepin HCl (Sinequan) 150 mg PO BEDTIME [facility] Last Admin: 02/28/19 20:22 Dose: 150 mg Non-Formulary Medication (Alendronate Sodium [Fosamax]) 70 mg PO Q7D [facility] Citalopram 20mg Tab (Ptom) 30 each PO DAILY [facility] Last Admin: 03/01/19 07:41 Dose: 30 each Citalopram 20mg Tab (Ptom) 30 each PO BEDTIME [facility] Oxycodone/Acetaminophen (Percocet 325-5 Mg) 1 - 2 tab PO Q4H PRN PRN Reason: Pain (moderate 4-6) Last Admin: 02/28/19 08:58 Dose: 2 tab Pantoprazole Sodium (Protonix) 40 mg PO DAILY [facility] Last Admin: 02/28/19 08:59 Dose: 40 mg Acetaminophen/Oxycodone 325-5 Mg Tab*Pt Own Med* 1 - 2 each PO Q4H PRN PRN Reason: Pain (moderate 4-6) Last Admin: 03/01/19 14:37 Dose: 2 each Potassium Chloride (Klor-Con 10) 20 meq PO DAILY [facility] Last Admin: 02/28/19 08:59 Dose: 20 meq - Exam General: Alert, Oriented, Cooperative Neck: Supple Back Exam: Normal Inspection, Full Range of Motion Extremities: Normal Inspection (post surgical site left knee, dressing intact and no redness or heat), Non-Tender, No Pedal Edema, Normal Capillary Refill Peripheral Pulses: 2+: Posterior Tibial (L), Dorsalis Pedis (L) Skin: Warm, Dry Wound/Incisions: Healing Well Neurological: No New Focal Deficit, Normal Speech Psy/Mental Status: Alert, Normal Affect, Normal Mood Sepsis Event Note - Evaluation Sepsis Screening Result: No Definite Risk - Focused Exam Vital Signs: Vital Signs Temp Pulse Resp BP Pulse Ox 03/03/19 07:52 37.3 C 86 16 118/59 L 98 Date Exam was Performed: 03/03/19 Time Exam was Performed: 19:38 - Problem List & Annotations (1) Status post total left knee replacement SNOMED Code(s): 5798740994756, [id number] Code(s): Z96.652 - PRESENCE OF LEFT ARTIFICIAL KNEE JOINT Status: Acute Priority: High Current Visit: Yes - Problem List Review Problem List Initiated/Reviewed/Updated: Yes - Plan Plan:: S/P Left Total Knee Replacement Will continue with Percocet for pain. Miralax and Colace for constipation. Physical therapy for strengthening/ambulation 03/03/191940 pt c/o pain and the [place] not helping well, no calf pain, distal PMS intact, pt did not bring her elastic band for ROM from [place], she advised h\she sent it home with her family. The pt has not been ambulating or doing much ROM. will add Percocet 5/325 every 8 hours as needed for pain. pt encouraged to do ROM exercise and have her family bring her elastic band in.
[2019-03-04] MEDS: Acetaminophen/HYDROcodone 325-5 MG Tab PO PRN ×2 (02:48→08:48)
[2019-03-04] MEDS: Polyethylene Glycol 3350 Powder 17 GM Packet PO SCH (07:50)
[2019-03-04] MEDS: Aspirin 81 MG Tab.Chew PO SCH (07:53)
[2019-03-04] MEDS: Docusate Sodium 100 MG Cap PO SCH ×2 (07:53→20:17)
[2019-03-04] MEDS: Multivitamin Tab PO SCH (07:53)
[2019-03-04] MEDS: Loratadine 10 MG Tab PO SCH (07:54)
[2019-03-04] MEDS: Cholecalciferol (Vitamin D3) 25 MCG Tab PO SCH (07:54)
[2019-03-04] MEDS: POTASSIUM CHLORIDE 20 MEQ PO SCH (07:56)
[2019-03-04] MEDS: MONTELUKAST 10 MG PO SCH (07:56)
[2019-03-04] MEDS: Cyclobenzaprine 10 MG Tab PO PRN (12:59)
[2019-03-04] MEDS: Acetaminophen/HYDROcodone 325-5 MG Tab*PT OWN MED PO PRN ×2 (16:30→21:53)
[2019-03-04] MEDS: DOXEPIN HCL 75 MG PO SCH (20:17)
[2019-03-04] MEDS: CITALOPRAM 20 MG PO SCH (20:17)
[2019-03-05] MEDS: Acetaminophen 500 MG Tab PO PRN (02:14)
[2019-03-05] MEDS: MONTELUKAST 10 MG PO SCH (08:16)
[2019-03-05] MEDS: POTASSIUM CHLORIDE 20 MEQ PO SCH (08:16)
[2019-03-05] MEDS: Aspirin 81 MG Tab.Chew PO SCH (08:25)
[2019-03-05] MEDS: Loratadine 10 MG Tab PO SCH (08:25)
[2019-03-05] MEDS: Docusate Sodium 100 MG Cap PO SCH (08:25)
[2019-03-05] MEDS: Multivitamin Tab PO SCH (08:26)
[2019-03-05] MEDS: Cholecalciferol (Vitamin D3) 25 MCG Tab PO SCH (08:26)
[2019-03-05] MEDS: Polyethylene Glycol 3350 Powder 17 GM Packet PO SCH (08:26)
[2019-03-05] MEDS: Acetaminophen/HYDROcodone 325-5 MG Tab*PT OWN MED PO PRN (08:28)
--- NOTE | 2019-03-05 09:14 | PCM.DCSUM1 ---
Discharge Summary - Hospital Course Free Text/Narrative:: Patient admitted swing bed from [facility] [place] after left total knee replacement. Admitted for physical therapy and pain control. On admit, left knee has fair amount of swelling, mild lateral redness. Bandage intact to left knee. Diagnosis: Stroke: No Modified Lisa Scale: No Symptoms at All Modified Smilax Scale Score: 0 - Discharge Data Discharge Date: 03/05/19 Discharge Disposition: Home, W Home Health Agency 06 Condition: Fair - Referral to Home Health Date of Face to Face Encounter: 03/05/19 Reason for Homebound Status: unable to drive due to recent knee replacement Primary Care Physician: Lamont Mackey MD Skilled Need: Nursing to monitor incision, pain level and use of pain meds. Physical therapy for strengthening, exercises. OT for ADLs and home safety - Discharge Diagnosis/Problem(s) (1) Status post total left knee replacement SNOMED Code(s): 2036308277154, [id number] ICD Code: Z96.652 - PRESENCE OF LEFT ARTIFICIAL KNEE JOINT Status: Acute Priority: High - Patient Summary/Data Complications: none Consults: Consultations 02/27/19 11:40 PT Evaluation and Treatment [CONS] Routine Hospital Course: Patient doing well. Is ambulating well in the hallways with walker. Left knee remain swollen, redness is improved. No warmth noted. Tolerating pain with [place] as needed. Doing well with physical therapy, able to go up and down stairs. Appetite has been good. No complaints other than knee pain. - Patient Instructions Diet: Usual Diet as Tolerated Activity: As Tolerated - Discharge Plan *PRESCRIPTION DRUG MONITORING PROGRAM REVIEWED*: No *COPY OF PRESCRIPTION DRUG MONITORING REPORT IN PATIENT VERONIKA: No Prescriptions/Med Rec: Docusate Sodium [Colace] 100 mg PO BID #30 cap Patient's Own Medication [Ptom] 1 each PO Q6H PRN #60 tab PRN Reason: Pain (Moderate 4-6) Home Medications: Home Meds Citalopram [Celexa] 30 mg PO DAILY 11/29/15 [History] Cyclobenzaprine [Flexeril] 10 mg PO TID PRN 11/29/15 [History] Doxepin HCl 150 mg PO BEDTIME 11/29/15 [History] Polyethylene Glycol 3350 [MiraLAX] 17 gm PO DAILY 11/29/15 [History] Alendronate Sodium [Fosamax] 70 mg PO Q7D 05/04/16 [History] Omeprazole 40 mg PO DAILY 05/04/16 [History] Multivitamin [Multiple Vitamins] 1 tab PO DAILY 12/04/17 [History] Potassium Chloride [Klor-Con 10] 20 meq PO DAILY #30 tab.er 12/06/17 [Rx] Acetaminophen [Tylenol Extra Strength] 1,000 mg PO ASDIRECTED PRN 02/27/19 [ History] Aspirin 81 mg PO DAILY 02/27/19 [History] Cholecalciferol (Vitamin D3) [Vitamin D3] 1,000 unit PO DAILY 02/27/19 [History] Loratadine [Claritin] 10 mg PO DAILY 02/27/19 [History] Meloxicam [Mobic] 7.5 mg PO BID PRN 02/27/19 [History] Montelukast [Singulair] 10 mg PO DAILY 02/27/19 [History] Polyethylene Glycol 3350 [MiraLAX] 17 gm PO DAILY PRN 02/27/19 [History] Docusate Sodium [Colace] 100 mg PO BID #30 cap 03/05/19 [Rx] Patient's Own Medication [Ptom] 1 each PO Q6H PRN #60 tab 03/05/19 [Rx] Referrals: Nereyda Logan PA-C [ED Midlevel Provider] - (Follow up with Nereyda Logan in 2 weeks.) - Discharge Summary/Plan Comment DC Time >30 min.: No - General Info Date of Service: 03/05/19 Admission Dx/Problem (Free Text: Admission Diagnosis/Problem Admission Diagnosis/Problem Status post total knee replacement, left Functional Status: Reports: Pain Controlled, Tolerating Diet, Ambulating - Review of Systems General: Reports: Weakness HEENT: Reports: No Symptoms Pulmonary: Denies: Shortness of Breath, Cough Cardiovascular: Denies: Chest Pain, Edema, Lightheadedness Gastrointestinal: Denies: Abdominal Pain, Nausea, Vomiting Genitourinary: Reports: No Symptoms Musculoskeletal: Reports: Joint Pain Skin: Reports: Other (incision left knee) Neurological: Reports: No Symptoms - Patient Data Vitals - Most Recent: Last Vital Signs Temp 98.5 F 03/04/19 20:00 Pulse 88 03/04/19 20:00 Resp 20 03/04/19 20:00 BP 108/73 03/04/19 20:00 Pulse Ox 96 03/04/19 20:00 Weight - Most Recent: 152 lb 1.6 oz Med Orders - Current: Current Medications Acetaminophen (Tylenol Extra Strength) 1,000 mg PO Q8H PRN PRN Reason: Pain Last Admin: 03/05/19 02:14 Dose: 1,000 mg Aspirin (Aspirin) 81 mg PO DAILY [facility] Last Admin: 03/05/19 08:25 Dose: 81 mg Cholecalciferol (Vitamin D3) 25 mcg PO DAILY [facility] Last Admin: 03/05/19 08:26 Dose: 25 mcg Cyclobenzaprine HCl (Flexeril) 10 mg PO TID PRN PRN Reason: Pain Last Admin: 03/04/19 12:59 Dose: 10 mg Diphenhydramine HCl (Benadryl) 25 mg PO BID PRN PRN Reason: Itching Last Admin: 03/01/19 18:34 Dose: 25 mg Docusate Sodium (Colace) 100 mg PO BID [facility] Last Admin: 03/05/19 08:25 Dose: 100 mg Loratadine (Claritin) 10 mg PO DAILY [facility] Last Admin: 03/05/19 08:25 Dose: 10 mg Montelukast Sodium (Singulair) 10 mg PO DAILY [facility] Last Admin: 03/05/19 08:16 Dose: 10 mg Multivitamins/Minerals/Vitamin C (Tab-A-Laurel) 1 tab PO DAILY [facility] Last Admin: 03/05/19 08:26 Dose: 1 tab Potassium Chloride (20meq Tab Ptom) 20 each PO DAILY [facility] Last Admin: 03/05/19 08:16 Dose: 20 each Doxepin Hcl 75mg (Caps Ptom) 2 each PO BEDTIME [facility] Last Admin: 03/04/19 20:17 Dose: 2 each Omeprazole 40mg (Ptom) 40 each PO ACBREAKFAST [facility] Last Admin: 03/05/19 06:15 Dose: Not Given Citalopram 20 Mg (Own Med) 1.5 each PO BEDTIME [facility] Last Admin: 03/04/19 20:17 Dose: 1.5 each Ondansetron HCl (Zofran Odt) 4 mg PO Q4H PRN PRN Reason: nausea, able to take PO Acetaminophen/Hydrocodone 325-5 Mg Tab*Pt Own Med* 0 each PO Q6H PRN PRN Reason: Pain (moderate 4-6) Last Admin: 03/05/19 08:28 Dose: 1 each Polyethylene Glycol (Miralax) 17 gm PO DAILY [facility] Last Admin: 03/05/19 08:26 Dose: 17 gm Temazepam (Restoril) 15 mg PO BEDTIME PRN PRN Reason: Sleep Discontinued Medications Acetaminophen (Tylenol Extra Strength) 1,000 mg PO ASDIRECTED PRN PRN Reason: Pain Hydrocodone Bitart/Acetaminophen ([place] 325-5 Mg) 1 tab PO Q4H PRN PRN Reason: Pain Last Admin: 03/03/19 19:32 Dose: 1 tab Hydrocodone Bitart/Acetaminophen ([place] 325-5 Mg) 0 tab PO Q6H PRN PRN Reason: Pain (moderate 4-6) Last Admin: 03/04/19 08:48 Dose: 2 tab Citalopram Hydrobromide (Celexa) 30 mg PO DAILY [facility] Last Admin: 02/28/19 08:59 Dose: 30 mg Doxepin HCl ([place]) 150 mg PO BEDTIME [facility] Last Admin: 02/28/19 20:22 Dose: 150 mg Non-Formulary Medication (Alendronate Sodium [Fosamax]) 70 mg PO Q7D [facility] Citalopram 20mg Tab (Ptom) 30 each PO DAILY [facility] Last Admin: 03/01/19 07:41 Dose: 30 each Citalopram 20mg Tab (Ptom) 30 each PO BEDTIME [facility] Oxycodone/Acetaminophen (Percocet 325-5 Mg) 1 - 2 tab PO Q4H PRN PRN Reason: Pain (moderate 4-6) Last Admin: 02/28/19 08:58 Dose: 2 tab Oxycodone/Acetaminophen (Percocet 325-5 Mg) 1 tab PO Q8H PRN PRN Reason: Pain (severe 7-10) Pantoprazole Sodium (Protonix) 40 mg PO DAILY [facility] Last Admin: 02/28/19 08:59 Dose: 40 mg Acetaminophen/Oxycodone 325-5 Mg Tab*Pt Own Med* 1 - 2 each PO Q4H PRN PRN Reason: Pain (moderate 4-6) Last Admin: 03/01/19 14:37 Dose: 2 each Potassium Chloride (Klor-Con 10) 20 meq PO DAILY [facility] Last Admin: 02/28/19 08:59 Dose: 20 meq - Exam General: Reports: Alert, Oriented HEENT: Reports: Mucous Membr. Moist/[place] Neck: Reports: Supple Lungs: Reports: Clear to Auscultation, Normal Respiratory Effort Cardiovascular: Reports: Regular Rate, Regular Rhythm GI/Abdominal Exam: Normal Bowel Sounds, Soft, Non-Tender Skin: Reports: Warm, Dry Wound/Incisions: Reports: Healing Well, No Drainage Neurological: Reports: No New Focal Deficit
[2019-03-05 11:04] VITALS: BP 128/65; PULSE 84
== END 2019-03-05 09:52 | disposition home health service (06) | DRG 561 ==
LOC: UNDOADMIN 11:08 → CC.MS 11:08
PROVIDERS: ADMIT Family Medicine; ATTEND Family Medicine
DX: Z47.1 Aftercare following joint replacement surgery (principal); I10 Essential (primary) hypertension; K59.09 Other constipation; K21.9 Gastro-esophageal reflux disease without esophagitis; F32.9 Major depressive disorder, single episode, unspecified; Z96.652 Presence of left artificial knee joint; Z88.5 Allergy status to narcotic agent; Z91.012 Allergy to eggs; Z88.0 Allergy status to penicillin; Z91.018 Allergy to other foods; Z79.82 Long term (current) use of aspirin; Z79.899 Other long term (current) drug therapy
CPT/HCPCS: 97110-GP; 97116-GP; 97161-GP; A9270-GY

== ENCOUNTER 2019-04-23 11:01 | Emergency (ER) | payer MEDICARE, MEDICAID ==
[2019-04-23 11:13] VITALS: BP 153/81; PULSE 108
[2019-04-23] MEDS ORDERED: Ondansetron 4 MG Tab.DIS PO ONE (11:42)
--- NOTE | 2019-04-23 11:42 | EDM.PDOC ---
ED HPI GENERAL MEDICAL PROBLEM - General Chief Complaint: Respiratory Problem Stated Complaint: ?FLU/FEVER/NAUSEA Time Seen by Provider: 04/23/19 11:30 Source of Information: Reports: Patient History Limitations: Reports: No Limitations - History of Present Illness INITIAL COMMENTS - FREE TEXT/NARRATIVE: Patient presents to ER with complaints of fever, sinus congestion, and body aches. States started not feeling well on Monday. Has been taking Tylenol for discomfort. Cough has been very moist, productive at times. Admits to coughing so hard she vomits. Other family members have also been ill. Onset: Gradual Duration: Day(s):, Getting Worse Location: Reports: Chest Quality: Reports: Ache Severity: Severe Improves with: Reports: Rest Associated Symptoms: Reports: Cough, cough w sputum, Fever/Chills, Headaches, Loss of Appetite, Malaise, Nausea/Vomiting, Shortness of Breath, Weakness. 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 Generalized Pain Score (Numeric/FACES): 5 - Related Data Allergies Allergy/AdvReac Type Severity Reaction Status Date / Time codeine Allergy Itching Verified 04/23/19 11:13 corn Allergy Cannot Verified 04/23/19 11:13 Remember egg Allergy Stomach Verified 04/23/19 11:13 Upset oxycodone Allergy Rash Verified 04/23/19 11:13 Penicillins Allergy Cannot Verified 04/23/19 11:13 Remember strawberry Allergy Cannot Verified 04/23/19 11:13 Remember Home Meds: Home Meds Citalopram [Celexa] 30 mg PO DAILY 11/29/15 [History] Cyclobenzaprine [Flexeril] 10 mg PO TID PRN 11/29/15 [History] Doxepin HCl 150 mg PO BEDTIME 11/29/15 [History] Polyethylene Glycol 3350 [MiraLAX] 17 gm PO DAILY 11/29/15 [History] Alendronate Sodium [Fosamax] 70 mg PO Q7D 05/04/16 [History] Omeprazole 40 mg PO DAILY 05/04/16 [History] Multivitamin [Multiple Vitamins] 1 tab PO DAILY 12/04/17 [History] Potassium Chloride [Klor-Con 10] 20 meq PO DAILY #30 tab.er 12/06/17 [Rx] Acetaminophen [Tylenol Extra Strength] 1,000 mg PO ASDIRECTED PRN 02/27/19 [ History] Aspirin 81 mg PO DAILY 02/27/19 [History] Cholecalciferol (Vitamin D3) [Vitamin D3] 1,000 unit PO DAILY 02/27/19 [History] Loratadine [Claritin] 10 mg PO DAILY 02/27/19 [History] Meloxicam [Mobic] 7.5 mg PO BID PRN 02/27/19 [History] Montelukast [Singulair] 10 mg PO DAILY 02/27/19 [History] polyethylene glycoL 3350 [MiraLAX] 17 gm PO DAILY PRN 02/27/19 [History] Docusate Sodium [Colace] 100 mg PO BID #30 cap 03/05/19 [Rx] Patient's Own Medication [Ptom] 1 each PO Q6H PRN #60 tab 03/05/19 [Rx] Ondansetron [Zofran ODT] 4 mg PO Q6H #20 tab.dis 04/23/19 [Rx] Oseltamivir [Tamiflu] 75 mg PO BID #10 cap 04/23/19 [Rx] Past Medical History HEENT History: Reports: Allergic Rhinitis Cardiovascular History: Reports: Hypertension Gastrointestinal History: Reports: Chronic Constipation, GERD, Hepatitis, Other (See Below) Other Gastrointestinal History: hep B 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: Musculoskeletal History: Reports: Other (See Below) Other Musculoskeletal History: muscle spasms Psychiatric History: Reports: Depression - Infectious Disease History Infectious Disease History: Reports: Hepatitis B - Past Surgical History HEENT Surgical History: Reports: Cataract Surgery GI Surgical History: Reports: Cholecystectomy Musculoskeletal Surgical History: Reports: Knee Replacement, Other (See Below) Other Musculoskeletal Surgeries/Procedures:: foot surgery, wrist surgery Social & Family History - Family History Family Medical History: Noncontributory - Tobacco Use Smoking Status *Q: Never Smoker - Caffeine Use Caffeine Use: Reports: Coffee, Soda - Recreational Drug Use Recreational Drug Use: No ED ROS GENERAL - Review of Systems Review Of Systems: See Below Constitutional: Reports: Fever, Chills, Malaise, Weakness, Fatigue HEENT: Reports: Rhinitis. Denies: Sinus Problem, Throat Pain Respiratory: Reports: Shortness of Breath, Cough Cardiovascular: Denies: Chest Pain, Edema, Lightheadedness Endocrine: Reports: Fatigue GI/Abdominal: Reports: Anorexia, Nausea, Vomiting. Denies: Abdominal Pain : Reports: No Symptoms Musculoskeletal: Reports: No Symptoms Skin: Reports: No Symptoms Neurological: Reports: Weakness ED EXAM, GENERAL - Physical Exam Exam: See Below Exam Limited By: No Limitations General Appearance: Alert, WD/WN, Moderate Distress Ears: Normal External Exam, Normal TMs Nose: Normal Inspection, Normal Mucosa, No Blood Throat/Mouth: Normal Inspection, Normal Oropharynx Head: Normocephalic Neck: Normal Inspection, Supple, Non-Tender Respiratory/Chest: No Respiratory Distress, Lungs Clear, Normal Breath Sounds Cardiovascular: Regular Rate, Rhythm GI/Abdominal: Normal Bowel Sounds, Soft, Non-Tender Extremities: Normal Inspection, No Pedal Edema Neurological: Alert, Oriented Skin Exam: Other (clammy) Course - Vital Signs Last Recorded V/S: Last Vital Signs Temp 101 F H 04/23/19 11:10 Pulse 108 H 04/23/19 11:10 Resp 18 04/23/19 11:10 BP 153/81 H 04/23/19 11:10 Pulse Ox 98 04/23/19 11:10 - Orders/Labs/Meds Meds: Medications Discontinued Medications Generic Name Dose Route Start Last Admin Trade Name Demarcusq PRN Reason Stop Dose Admin Ondansetron HCl 4 mg 04/23/19 11:42 04/23/19 11:53 Zofran Odt PO 04/23/19 11:43 4 mg ONETIME ONE Administration - Re-Assessments/Exams Free Text/Narrative Re-Assessment/Exam: 04/23/19 Influenza A is positive Departure - Departure Time of Disposition: 11:41 Disposition: Home, Self-Care 01 Condition: Fair Clinical Impression: Influenza A - Discharge Information *PRESCRIPTION DRUG MONITORING PROGRAM REVIEWED*: No *COPY OF PRESCRIPTION DRUG MONITORING REPORT IN PATIENT VERONIKA: No Prescriptions: Ondansetron [Zofran ODT] 4 mg PO Q6H #20 tab.dis Oseltamivir [Tamiflu] 75 mg PO BID #10 cap Referrals: Zohra Livingston PA [Primary Care Provider] - Forms: ED Department Discharge Additional Instructions: 1. Push fluids 2. Alternate tylenol with ibuprofen for fever or discomfort 3. Tamiflu 75 twice a day for 5 days 4. Zofran 4 mg under tongue every 6 hours as needed for nausea and vomiting 5. Rest 6. Follow up if any persisting concerns. Sepsis Event Note - Evaluation Sepsis Screening Result: Possible Sepsis Risk - Focused Exam Vital Signs: Vital Signs Temp Pulse Resp BP Pulse Ox 04/23/19 11:10 101 F H 108 H 18 153/81 H 98 Date Exam was Performed: 04/23/19 Time Exam was Performed: 21:35
== END 2019-04-23 12:18 | disposition home or self-care (01) ==
LOC: CC.ED 11:01
DX: J10.1 Influenza due to other identified influenza virus with other respiratory manifestations (principal); I10 Essential (primary) hypertension; K21.9 Gastro-esophageal reflux disease without esophagitis; F32.9 Major depressive disorder, single episode, unspecified; Z88.5 Allergy status to narcotic agent; Z91.012 Allergy to eggs; Z88.0 Allergy status to penicillin; Z91.018 Allergy to other foods; Z79.899 Other long term (current) drug therapy; Z79.82 Long term (current) use of aspirin
CPT/HCPCS: 87804; 99283; A9270-GY

== ENCOUNTER 2020-10-09 08:55 | Emergency (ER) | payer MEDICARE, MEDICAID ==
[2020-10-09 09:27] VITALS: BP 142/81; PULSE 87
--- NOTE | 2020-10-09 09:29 | EDM.PDOC ---
ED HPI GENERAL MEDICAL PROBLEM - General Chief Complaint: Lower Extremity Injury/Pain Stated Complaint: RT KNEE PAIN Time Seen by Provider: 10/09/20 09:20 Source of Information: Reports: Patient, RN History Limitations: Reports: No Limitations - History of Present Illness INITIAL COMMENTS - FREE TEXT/NARRATIVE: Had knee replacement yesterday in [place] and she was having pain this AM. Slept several hours during the night and when she woke this AM she took 1 of her hydrocodone and she still hurt so she came to the ER. She did inquire if she would qualify for swing bed. She was informed that she was an outpt procedure and it would have to be self pay if she did. She relates that she does not want to do that. She was given dilaudid per EMS and has some relief. She does periodically doze off when resting on the cart. She has not had any bleeding from the site. No redness is noted around the dressing that is intact and dry. She denies any numbness or tingling to the area. Onset: Gradual Duration: Constant Location: Reports: Lower Extremity, Right Quality: Reports: Sharp Improves with: Reports: Cold Therapy Right Knee Pain Score (Numeric/FACES): 8 - Related Data Allergies Allergy/AdvReac Type Severity Reaction Status Date / Time codeine Allergy Itching Verified 10/09/20 09:04 corn Allergy Cannot Verified 10/09/20 09:04 Remember egg Allergy Stomach Verified 10/09/20 09:04 Upset oxycodone Allergy Rash Verified 10/09/20 09:04 Penicillins Allergy Cannot Verified 10/09/20 09:04 Remember strawberry Allergy Cannot Verified 10/09/20 09:04 Remember Home Meds: Home Meds Citalopram [Celexa] 30 mg PO BEDTIME 11/29/15 [History] Cyclobenzaprine [Flexeril] 10 mg PO DAILY PRN 11/29/15 [History] Doxepin HCl 150 mg PO BEDTIME 11/29/15 [History] Alendronate Sodium [Fosamax] 70 mg PO Q7D 05/04/16 [History] Multivitamin [Multiple Vitamins] 1 tab PO DAILY 12/04/17 [History] Potassium Chloride [Klor-Con 10] 20 meq PO DAILY #30 tab.er 12/06/17 [Rx] Acetaminophen [Tylenol Extra Strength] 1,000 mg PO ASDIRECTED PRN 02/27/19 [History] Aspirin 81 mg PO DAILY 02/27/19 [History] Cholecalciferol (Vitamin D3) [Vitamin D3] 1,000 unit PO DAILY 02/27/19 [History] Loratadine [Claritin] 10 mg PO DAILY 02/27/19 [History] polyethylene glycoL 3350 [MiraLAX] 17 gm PO DAILY PRN 02/27/19 [History] Docusate Sodium [Colace] 100 mg PO BID #30 cap 03/05/19 [Rx] Hydrocodone/Acetaminophen [HYDROcodone-Acetaminophen 5-325 MG] 1 - 2 tab PO Q6HR PRN 10/09/20 [History] Past Medical History HEENT History: Reports: Allergic Rhinitis Cardiovascular History: Reports: Hypertension Gastrointestinal History: Reports: Chronic Constipation, GERD, Hepatitis, Other (See Below) Other Gastrointestinal History: hep B 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: Musculoskeletal History: Reports: Other (See Below) Other Musculoskeletal History: muscle spasms Psychiatric History: Reports: Depression - Infectious Disease History Infectious Disease History: Reports: Hepatitis B - Past Surgical History HEENT Surgical History: Reports: Cataract Surgery GI Surgical History: Reports: Cholecystectomy Other GI Surgeries/Procedures: esopageal surgery Musculoskeletal Surgical History: Reports: Knee Replacement, Other (See Below) Other Musculoskeletal Surgeries/Procedures:: foot surgery, wrist surgery Social & Family History - Family History Family Medical History: No Pertinent Family History - Caffeine Use Caffeine Use: Reports: Coffee, Soda - Living Situation & Occupation Living situation: Reports: Alone Occupation: Retired Review of Systems - Review of Systems Review Of Systems: See Below Respiratory: Reports: No Symptoms Cardiovascular: Reports: No Symptoms GI/Abdominal: Reports: No Symptoms Genitourinary: Reports: No Symptoms Musculoskeletal: Reports: Leg Pain Skin: Reports: Wound (right knee surgical incision) ED EXAM, GENERAL - Physical Exam Exam: See Below Exam Limited By: No Limitations General Appearance: Alert, WD/WN, Mild Distress, Moderate Distress Respiratory/Chest: No Respiratory Distress, Lungs Clear, Normal Breath Sounds Cardiovascular: Normal Peripheral Pulses, Regular Rate, Rhythm, No Edema GI/Abdominal: Normal Bowel Sounds Extremities: Other (right knee does have surgical dressing intact. No bleeding noted under the dressing. Has good CMS distally. She is in less pain since the dilaudid. ) Skin Exam: Warm, Dry Course - Vital Signs Last Recorded V/S: Last Vital Signs Temp 97.3 F 10/09/20 08:58 Pulse 87 10/09/20 09:26 Resp 12 10/09/20 09:26 BP 142/81 H 10/09/20 09:26 Pulse Ox 95 10/09/20 09:26 Departure - Departure Time of Disposition: 09:25 Disposition: Home, Self-Care 01 Condition: Good Clinical Impression: Post-operative pain - Discharge Information *PRESCRIPTION DRUG MONITORING PROGRAM REVIEWED*: Not Applicable *COPY OF PRESCRIPTION DRUG MONITORING REPORT IN PATIENT VERONIKA: Not Applicable Referrals: Nereyda Logan PA-C [Primary Care Provider] - Forms: ED Department Discharge Additional Instructions: can take 2 of the hydrocodone/tylenol if the pain is severe. You may need to take on a regular basis for the first 1-2 days. Ice knee as instructed by the surgeon Follow up with the surgeon as instructed. Sepsis Event Note (ED) - Evaluation Sepsis Screening Result: No Definite Risk - Problem List & Annotations (1) Status post total right knee replacement SNOMED Code(s): 6606529664188, [id number] Code(s): Z96.651 - PRESENCE OF RIGHT ARTIFICIAL KNEE JOINT Status: Acute Priority: High (2) Post-operative pain SNOMED Code(s): 195734888 Code(s): G89.18 - OTHER ACUTE POSTPROCEDURAL PAIN Status: Acute Priority: High - Problem List Review Problem List Initiated/Reviewed/Updated: Yes - Assessment/Plan Plan: follow up with surgeon as recommended. If pain is not controlled on the hydrocodone notify their office.
== END 2020-10-09 09:40 | disposition home or self-care (01) ==
LOC: CC.ED 08:55
DX: G89.18 Other acute postprocedural pain (principal); M25.561 Pain in right knee; I10 Essential (primary) hypertension; Z88.5 Allergy status to narcotic agent; Z96.651 Presence of right artificial knee joint; Z91.012 Allergy to eggs; Z91.018 Allergy to other foods; Z88.0 Allergy status to penicillin; Z79.82 Long term (current) use of aspirin; Z79.899 Other long term (current) drug therapy
CPT/HCPCS: 99283

== ENCOUNTER 2020-12-12 12:40 | Emergency (ER) | payer MEDICARE, MEDICAID ==
[2020-12-12 13:23] VITALS: BP 143/80; PULSE 80
--- NOTE | 2020-12-12 13:23 | EDM.PDOC ---
ED HPI GENERAL MEDICAL PROBLEM - General Chief Complaint: General Stated Complaint: leg and arm hurting, "something loud in my head" Time Seen by Provider: 12/12/20 12:50 Source of Information: Reports: Patient History Limitations: Reports: No Limitations - History of Present Illness INITIAL COMMENTS - FREE TEXT/NARRATIVE: Bravo is a 70 year old female who presents to ER with complaints of right knee pain. States fell 2 days ago and landed on her right knee. Has had more shooting pains since that time. Did have issues with this prior and had been put on Gabapentin that she takes nightly but it has been worse since she fell. States "I don't have any more hydrocodone to take for the pain". Did try ibuprofen but does not recall if it helped or not. Has not noted any swelling since the fall. No bruising. Also complains of a sore throat and ringing in the ears. Has had problems with tinnitus and yesterday states was much worse. Questions if had a panic attack "juan miguel the ringing was so loud and I had shortness of breath and was worked up and that scares me". Unsure why this occurred. Has had intermittent headaches, does not think she hit her head. Onset: Gradual Duration: Day(s): Location: Reports: Head, Lower Extremity, Right Quality: Reports: Ache, Throbbing Severity: Mild Improves with: Reports: None Worsens with: Reports: Movement Associated Symptoms: Reports: Headaches. 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 - Related Data Allergies Allergy/AdvReac Type Severity Reaction Status Date / Time codeine Allergy Itching Verified 12/12/20 13:01 corn Allergy Cannot Verified 12/12/20 13:01 Remember egg Allergy Stomach Verified 12/12/20 13:01 Upset oxycodone Allergy Rash Verified 12/12/20 13:01 Penicillins Allergy Cannot Verified 12/12/20 13:01 Remember strawberry Allergy Cannot Verified 12/12/20 13:01 Remember Home Meds: Home Meds Citalopram [Celexa] 30 mg PO BEDTIME 11/29/15 [History] Cyclobenzaprine [Flexeril] 10 mg PO DAILY PRN 11/29/15 [History] Doxepin HCl 150 mg PO BEDTIME 11/29/15 [History] Alendronate Sodium [Fosamax] 70 mg PO Q7D 05/04/16 [History] Multivitamin [Multiple Vitamins] 1 tab PO DAILY 12/04/17 [History] Potassium Chloride [Klor-Con 10] 20 meq PO DAILY #30 tab.er 12/06/17 [Rx] Acetaminophen [Tylenol Extra Strength] 1,000 mg PO ASDIRECTED PRN 02/27/19 [History] Aspirin 81 mg PO DAILY 02/27/19 [History] Cholecalciferol (Vitamin D3) [Vitamin D3] 1,000 unit PO DAILY 02/27/19 [History] Loratadine [Claritin] 10 mg PO DAILY 02/27/19 [History] polyethylene glycoL 3350 [MiraLAX] 17 gm PO DAILY PRN 02/27/19 [History] Docusate Sodium [Colace] 100 mg PO BID #30 cap 03/05/19 [Rx] Hydrocodone/Acetaminophen [HYDROcodone-Acetaminophen 5-325 MG] 1 - 2 tab PO Q6HR PRN 10/09/20 [History] Past Medical History HEENT History: Reports: Allergic Rhinitis Cardiovascular History: Reports: Hypertension Gastrointestinal History: Reports: Chronic Constipation, GERD, Hepatitis, Other (See Below) Other Gastrointestinal History: hep B 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: Musculoskeletal History: Reports: Other (See Below) Other Musculoskeletal History: muscle spasms Psychiatric History: Reports: Depression - Infectious Disease History Infectious Disease History: Reports: Hepatitis B - Past Surgical History HEENT Surgical History: Reports: Cataract Surgery GI Surgical History: Reports: Cholecystectomy Other GI Surgeries/Procedures: esopageal surgery Musculoskeletal Surgical History: Reports: Knee Replacement, Other (See Below) Other Musculoskeletal Surgeries/Procedures:: foot surgery, wrist surgery Social & Family History - Family History Family Medical History: No Pertinent Family History - Tobacco Use Tobacco Use Status *Q: Unknown Ever Used Tobacco - Caffeine Use Caffeine Use: Reports: Coffee, Soda - Living Situation & Occupation Living situation: Reports: Alone Occupation: Retired ED ROS GENERAL - Review of Systems Review Of Systems: See Below Constitutional: Denies: Fever, Chills, Malaise, Weakness, Fatigue, Decreased Appetite HEENT: Denies: Ear Pain, Rhinitis, Sinus Problem, Throat Pain Respiratory: Denies: Shortness of Breath, Cough Cardiovascular: Denies: Chest Pain, Edema, Lightheadedness Endocrine: Denies: Fatigue GI/Abdominal: Denies: Abdominal Pain, Diarrhea, Nausea, Vomiting : Reports: No Symptoms Musculoskeletal: Reports: Joint Pain Skin: Reports: No Symptoms Neurological: Reports: Headache Psychiatric: Reports: Anxiety ED EXAM, GENERAL - Physical Exam Exam: See Below Exam Limited By: No Limitations General Appearance: Alert, WD/WN, No Apparent Distress Eye Exam: Bilateral Eye: PERRL Ears: Normal External Exam, Normal TMs Nose: Normal Inspection, Normal Mucosa, No Blood Throat/Mouth: Normal Inspection, Normal Oropharynx Head: Normocephalic Neck: Normal Inspection, Supple, Non-Tender Respiratory/Chest: No Respiratory Distress, Lungs Clear, Normal Breath Sounds Cardiovascular: Regular Rate, Rhythm GI/Abdominal: Normal Bowel Sounds, Soft, Non-Tender Extremities: Normal Inspection, Other (no bruising, swelling or redness to knee. Good range of motion. Tender to lateral thigh with palpation but no bruising or swelling noted.) Neurological: Alert, Oriented Course - Orders/Labs/Meds Orders: Active Orders 24 hr Category Date Time Status Knee 3V Rt [CR] Stat Exams 12/12/20 13:05 Ordered - Re-Assessments/Exams Free Text/Narrative Re-Assessment/Exam: 12/12/20 13:49 knee xray is negative for acute concerns. Discussed with patient. Will start gabapentin 100 mg in am and afternoon as may help with neuropathy/knee pain, headaches, anxiety and muscle pain. Will need to follow up with Nereyda if does not see improvement or if feels helping and needs to continue the med. Advised to discuss her hearing eval with Nereyda at that appointment. Departure - Departure Time of Disposition: 13:50 Disposition: Home, Self-Care 01 Condition: Good Clinical Impression: Right knee pain, Myalgia - Discharge Information *PRESCRIPTION DRUG MONITORING PROGRAM REVIEWED*: No *COPY OF PRESCRIPTION DRUG MONITORING REPORT IN PATIENT VERONIKA: No Instructions: Acute Knee Pain, Adult, [id number] Additional Instructions: 1. Rest 2. Ice to knee for comfort 3. Gabapentin 100 mg in am, 100 mg in afternoon. Continue with 300 mg at bedtime 4. Ibuprofen 400 mg every 6 hours as needed for pain. Take with food 5. Follow up with Nereyda Logan for med refill or changes, hearing eval results. 6. Call with any questions or concerns. - My Orders Last 24 Hours: My Active Orders 12/12/20 13:05 Knee 3V Rt [CR] Stat - Assessment/Plan Last 24 Hours: My Active Orders 12/12/20 13:05 Knee 3V Rt [CR] Stat
[2020-12-12] MEDS ORDERED: Gabapentin 100 MG Cap PO SCH (14:00)
[2020-12-12] MEDS ORDERED: Gabapentin 100 MG Cap ONE (14:05)
== END 2020-12-12 14:10 | disposition home or self-care (01) ==
LOC: CC.ED 12:40
DX: M25.561 Pain in right knee (principal); M79.10 Myalgia, unspecified site; I10 Essential (primary) hypertension; Z88.5 Allergy status to narcotic agent; Z91.018 Allergy to other foods; Z91.012 Allergy to eggs; Z88.0 Allergy status to penicillin; Z79.82 Long term (current) use of aspirin; Z79.899 Other long term (current) drug therapy
CPT/HCPCS: 73562-RT; 99283-25; A9270-GY

== ENCOUNTER 2022-11-19 11:35 | Emergency (ER) | payer MEDICARE, MEDICAID ==
[2022-11-19 12:14] LABS: APPEARANCE,URINE CLEAR (CLEAR); BILIRUBIN,URINE NEGATIVE (NEGATIVE); COLOR,URINE YELLOW (YELLOW); GLUCOSE,URINE NEGATIVE (NEGATIVE); KETONES,URINE NEGATIVE (NEGATIVE); LEUKOCYTE ESTERASE,URINE TRACE (NEGATIVE); NITRITE,URINE NEGATIVE (NEGATIVE); OCCULT BLOOD,URINE SMALL (NEGATIVE); PH,URINE 6.5 (4.5-8.0); PROTEIN,URINE NEGATIVE (NEGATIVE)
[2022-11-19 12:25] LABS: BACTERIA,URINE FEW /HPF (NOT SEEN); EPITHELIAL CELLS,URINE FEW /HPF (NOT SEEN)
[2022-11-19] MEDS: Take Home: Cyclobenzaprine 10 MG Tab, 4 Tab Pack PO ONE (13:00)
[2022-11-19] MEDS: Orphenadrine 60 MG/2 ML Inj IM ONE (13:00)
[2022-11-19 16:51] VITALS: BP 139/81; PULSE 82
== END 2022-11-19 13:15 | disposition home or self-care (01) ==
LOC: CC.ED 11:35
DX: S39.012A Strain of muscle, fascia and tendon of lower back, initial encounter (principal); S40.011A Contusion of right shoulder, initial encounter; S40.012A Contusion of left shoulder, initial encounter; S20.212A Contusion of left front wall of thorax, initial encounter; I10 Essential (primary) hypertension; Z91.018 Allergy to other foods; Z88.5 Allergy status to narcotic agent; Z91.012 Allergy to eggs; Z88.0 Allergy status to penicillin; Z79.82 Long term (current) use of aspirin; Z79.899 Other long term (current) drug therapy; W01.0XXA Fall on same level from slipping, tripping and stumbling without subsequent striking against object, initial encounter
CPT/HCPCS: 71101-LT; 72100; 73030-LT; 73030-RT; 81001; 96372; 99283; A9270-GY; J2360

== ENCOUNTER 2022-11-27 16:00 | Emergency (ER) | payer MEDICARE, MEDICAID ==
[2022-11-27] MEDS ORDERED: Morphine 2 MG/ML SYRINGE IVPUSH ONE (17:08)
[2022-11-27] MEDS ORDERED: Naloxone 2 MG/2 ML Syringe IVPUSH PRN (17:08)
[2022-11-27] MEDS ORDERED: HYDROmorphone 0.5 MG/0.5 ML Syringe IVPUSH ONE (17:49)
[2022-11-27] MEDS ORDERED: Lidocaine 5% 700 MG Patch TRDERM ONE (19:32)
[2022-11-27 20:26] VITALS: BP 119/75; PULSE 86
== END 2022-11-27 20:55 | disposition home or self-care (01) ==
LOC: CC.ED 16:00
DX: S42.302A Unspecified fracture of shaft of humerus, left arm, initial encounter for closed fracture (principal); S42.215A Unspecified nondisplaced fracture of surgical neck of left humerus, initial encounter for closed fracture; I10 Essential (primary) hypertension; Z79.82 Long term (current) use of aspirin; Z79.899 Other long term (current) drug therapy; Z88.0 Allergy status to penicillin; Z88.5 Allergy status to narcotic agent; Z91.018 Allergy to other foods; Z91.012 Allergy to eggs; W19.XXXA Unspecified fall, initial encounter
CPT/HCPCS: 73030-LT; 96374; 96375; 99283; 99284-25; A9270-GY; J1170; J2270

== ENCOUNTER 2024-02-26 11:40 | Emergency (ER) | payer MEDICARE, MEDICAID ==
[2024-02-26 12:05] VITALS: BP 135/76; PULSE 85
== END 2024-02-26 14:50 | disposition home or self-care (01) ==
LOC: CC.ED 11:40 → SUPCPDRO 11:40 → CC.ED 14:50
DX: S06.0X0A Concussion without loss of consciousness, initial encounter (principal); S40.012A Contusion of left shoulder, initial encounter; M54.6 Pain in thoracic spine; I10 Essential (primary) hypertension; Z90.49 Acquired absence of other specified parts of digestive tract; Z79.899 Other long term (current) drug therapy; Z79.82 Long term (current) use of aspirin; Z91.018 Allergy to other foods; Z88.0 Allergy status to penicillin; Z88.5 Allergy status to narcotic agent
CPT/HCPCS: 70450; 72128; 72131; 99284